=== PATIENT | female | born 1950 | race Caucasian/White ===

== ENCOUNTER → 2017-12-20 10:01 | Outpatient (CLI) | payer MEDICARE, BC, SELFPAY ==
--- NOTE | 2017-12-20 | OV.WND_ITS ---
Progress Note Details Patient Name: Cherelle Carrillo Patient Number: [id number] PatientPatientDate: 12/20/2017 Clinician: Ginger Fuentes Clinician Cosigner: Marisa Tuttle Physician / Extension Associate: William Weems SUBJECTIVE Chief Complaint This information was obtained from the patient Trauma to Left Leg. One month ago. Allergies amoxicillin, clavulanic acid, clindamycin (Severity: Moderate, Reaction: Itching Rash), Prilosec (Reaction: Itching Rash), ampicillin (Severity: Severe, Reaction: Itching red flares on skin) HPI This information was obtained from the patient 12/20/17. Seen by Dr. Weems. The patient's new to our clinic and presents with a chronic left lower leg trauma wound that occurred about one month ago. She's received two courses of antibiotics but still reports significant pain at the site. She also states she was advised to try a homeopathic topical approach that included apple cider vinegar and black pepper but feels this only caused significant pain. She does not report fevers or feeling unwell and does not have a history of diabetes or PAD. 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 Injury (Head Injury 1997) Left Lower Leg Trauma (03/11/1998) Surgical History This information was obtained from the patient Patient has a surgical history of: Pelvic reconstruction (1997) Complete Hysterectomy Complaints and Symptoms This information was obtained from the patient Patient complains of: General Notes: I have reviewed and concur with the Review of Systems and Past Family Social History documents completed by the clinician, I have reviewed and concur with the Wound Assessment document completed by the clinician Cardiovascular (Central/Peripheral): Lower extremity (leg) swelling Integumentary (Hair/Skin/Nails): Open Sore Prior Wound History: Erythema, Pain Patient denies complaints or symptoms related to: Cardiovascular (Central/Peripheral): Intermittent Claudication, Lower extremity (leg) resting pain Constitutional Symptoms (General Health): Chills, Fever Ear/Nose/Mouth/Throat: Hearing Loss / Aid Hematologic/Lymphatic: Bleeding / Clotting Disorders, Bleeding Tendency Musculoskeletal: Assistive Devices Neurological: Loss of Protective Sensation Psychiatric: Memory Loss Respiratory: Shortness of Breath General Notes: Does not get the flu shot and had pneu vacc. over 20 years ago. Refuses Shingles Vacc. Medications C-Biest 2.5mg/Progesteron 100mg oral 2 2 Capsules oral once daily C-Testosterone/Lipoderm Vaginal Fold 2 clicks 2 clicks Cream Vaginal Fold once daily liothyronine 5 mcg tablet oral 1 1 tablet oral once daily Nature-Throid 260 mg tablet oral 2 2 tablet oral twice daily ketoconazole 2 % topical cream topical cream topical twice daily gentamicin 0.1 % topical ointment topical ointment topical once daily for 7 days for infected wound OBJECTIVE Constitutional BP elevated; Afebrile; Alert and in no distress. Well developed. Alert. Clean appearing.. Height/Length: 66 in (167.64 cm), Weight: 185.5 lbs (84.32 kgs), BMI: 29.9, Temperature: 98.6 ?F (37 ?C), Pulse: 82 bpm, Respiratory Rate: 18 breaths/min, Blood Pressure : 171/83 mmHg, Pulse Oximetry: 98 %. Ears, Nose, Mouth, and Throat: No clinically significant hearing loss on informal examination. Respiratory: No respiratory distress. Even respirations and without use of accessory muscles.. Cardiovascular: Pedal pulses 2+ on affected limb. 1+ left lower extremity edema. Integumentary (Hair, Skin) Mild periwound erythema without warmth. Refer to appropriate clinician wound documentation for this visit; left lower leg wound extends to subcut with base partially covered with pink granulation, remainder necrotic eschar, fibrin and slough. Wound #1 Left, Anterior Leg is a chronic Full Thickness Trauma Wound and has received a status of Not Healed. Initial wound encounter measurements are 7.2cm length x 1.2cm width x 0.2cm depth, with an area of 8.64 sq cm and a volume of 1.728 cubic cm. No tunneling has been noted. No sinus tract has been noted. No undermining has been noted. There is a moderate amount of sero-sanguineous drainage noted which has no odor. The patient reports a wound pain of level 3/10. The wound margin is attached. Wound bed has No epithelialization, Yes eschar, Yes slough, Yes bright red, firm granulation. The periwound skin texture is normal. The periwound skin moisture is normal. The periwound skin color is normal. Local Pulse is Doppler. Neurological: Cranial nerves grossly intact with symmetric function normal by informal observation.. ASSESSMENT Active Problems ICD-10 (Encounter Diagnosis) S81.802D - Unspecified open wound, left lower leg, subsequent encounter (Encounter Diagnosis) L08.9 - Local infection of the skin and subcutaneous tissue, unspecified PROCEDURES Wound #1 Wound #1 (Trauma Wound) is located on the left, anterior leg. A skin/ subcutaneous tissue level surgical debridement with a total area debrided of 8.64 sq cm was performed by William Weems MD. Subcutaneous was removed along with devitalized tissue: exudate, necrotic/eschar, and slough. The following instrument(s) were used: curette, forceps, and scissors. Pain control was achieved using 4% Lido. A time out was conducted prior to the start of the procedure. A minimal amount of bleeding was controlled with pressure. The procedure was tolerated well with a pain level of 0 throughout and a pain level of 0 following the procedure. Post Debridement Measurements: 7.2cm length x 1.2cm width x 0.2cm depth; with an area of 8.64 sq cm and a volume of 1.728 cubic cm; Additional Information Muscle fascia or bone removed and sent to pathology?: No PLAN Wound Orders: Wound #1 Left, Anterior Leg Cleanser Cleanse Wound: - Normal Saline or distilled water. May Shower. - If you wear a Cast Boot to protect dressing. We do not want you to get your wound wet in the shower. Topical Treatments Antibiotic/Antimicrobial Ointment/Cream. - Gentamicin to wound base. Dressings Primary dressing: - Border Foam to wound Change Dressing: - Every other day. Follow-Up Appointments Return Appointment: - - One Week. Scribing Attestation I attest, as the nurse, that I scribed these orders for the physician. Laboratory: Bacteria identified in Wound by Culture Medications prescribed: gentamicin - topical 0.1 % ointment once daily for 7 days for infected wound starting 12/20/2017 I've reviewed the clinician's documentation and agree with the evaluation and plan as written. In addition the patient's wound demonstrates evidence of non-viable devitalized tissue which will continue to benefit from sharp debridement to help promote granulation and expedite healing. Also, I've cultured the wound and started treating with topical gentamicin and I 'll consider restarting and oral antibiotics pending the culture results. Electronic Signature(s) Signed By: Date: William Weems MD 12/20/2017 15:39:04 Entered By: William Weems on 12/20/2017 12:00:49
== END ==
PROVIDERS: Family Provider Naturopath; PCP Physician Assistant; Referring Provider Physician Assistant; Visit Provider Internal Medicine
DX: L08.9 Local infection of the skin and subcutaneous tissue, unspecified (principal); S81.802A Unspecified open wound, left lower leg, initial encounter; M79.605 Pain in left leg
CPT/HCPCS: 11042; 87070; 87075; 87077; 87205; 99214

== ENCOUNTER → 2017-12-27 09:57 | Outpatient (CLI) | payer MEDICARE, BC, SELFPAY ==
--- NOTE | 2017-12-27 | OV.WND_ITS ---
Progress Note Details Patient Name: Cherelle Carrillo Patient Number: [id number] PatientPatientDate: 12/27/2017 Clinician: Marisa Tuttle Clinician Cosigner: Veronica Arana Physician / Instrumentation Engineer: William Weems SUBJECTIVE Chief Complaint This information was obtained from the patient Trauma to Left Leg. One month ago. Allergies amoxicillin, clavulanic acid, clindamycin (Severity: Moderate, Reaction: Itching Rash), Prilosec (Reaction: Itching Rash), ampicillin (Severity: Severe, Reaction: Itching red flares on skin) HPI This information was obtained from the patient 12/27/17. Seen by Dr. Weems. The patient reports continued pain associated with the left lower leg trauma wound despite treating with topical gentamicin. He wound culture from the last visit grew a randy species. She does not report fevers or feeling unwell otherwise. 12/20/17. Seen by Dr. Weems. The patient's new to our clinic and presents with a chronic left lower leg trauma wound that occurred about one month ago. She's received two courses of antibiotics but still reports significant pain at the site. She also states she was advised to try a homeopathic topical approach that included apple cider vinegar and black pepper but feels this only caused significant pain. She does not report fevers or feeling unwell and does not have a history of diabetes or PAD. 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 Injury (Head Injury 1997) Left Lower Leg Trauma (03/11/1998) Complaints and Symptoms This information was obtained from the patient Patient complains of: General Notes: I have reviewed and concur with the Review of Systems and Past Family Social History documents completed by the clinician, I have reviewed and concur with the Wound Assessment document completed by the clinician Cardiovascular (Central/Peripheral): Lower extremity (leg) swelling Integumentary (Hair/Skin/Nails): Open Sore Prior Wound History: Erythema, Pain Patient denies complaints or symptoms related to: Cardiovascular (Central/Peripheral): Intermittent Claudication, Lower extremity (leg) resting pain Constitutional Symptoms (General Health): Chills, Fever Ear/Nose/Mouth/Throat: Hearing Loss / Aid Hematologic/Lymphatic: Bleeding / Clotting Disorders, Bleeding Tendency Musculoskeletal: Assistive Devices Neurological: Loss of Protective Sensation Psychiatric: Memory Loss Respiratory: Shortness of Breath OBJECTIVE Constitutional BP elevated; Afebrile; Alert and in no distress. Well developed. Alert. Clean appearing.. Height/Length: 66 in (167.64 cm), Weight: 185.6 lbs (84.36 kgs), BMI: 30, Temperature: 97.5 ?F (36.39 ?C), Pulse: 73 bpm, Respiratory Rate: 18 breaths/min, Blood Pressure: 152/84 mmHg, Pulse Oximetry: 97 %. Respiratory: No respiratory distress. Even respirations and without use of accessory muscles.. Cardiovascular: Affected extremity exhibits no peripheral edema or cyanosis, is warm, and is well perfused. Capillary refill is less than 2 seconds. Integumentary (Hair, Skin) Mild periwound erythema without warmth. Refer to appropriate clinician wound documentation for this visit; left lower leg wound extends to subcut with base partially covered with pink granulation, remainder fibrin and slough; tender to debridement. Wound #1 Left, Anterior Leg is a chronic Full Thickness Trauma Wound and has received a status of Not Healed. Subsequent wound encounter measurements are 7cm length x 1cm width x 0.2cm depth, with an area of 7 sq cm and a volume of 1.4 cubic cm. No tunneling has been noted. No sinus tract has been noted. No undermining has been noted. There is a moderate amount of sero-sanguineous drainage noted which has no odor. The patient reports a wound pain of level 6/10. The wound margin is attached. Wound bed has Yes epithelialization, No eschar, Yes slough, Yes bright red, pink, firm granulation. The periwound skin texture is normal. The periwound skin moisture is normal. The periwound skin color is normal. The temperature of the periwound skin is WNL. Periwound skin does not exhibit signs or symptoms of infection. Local Pulse is Doppler. Neurological: Cranial nerves grossly intact with symmetric function normal by informal observation.. ASSESSMENT Active Problems ICD-10 (Encounter Diagnosis) S81.802D - Unspecified open wound, left lower leg, subsequent encounter (Encounter Diagnosis) L08.9 - Local infection of the skin and subcutaneous tissue, unspecified PROCEDURES Wound #1 Wound #1 (Trauma Wound) is located on the left, anterior leg. A skin/ subcutaneous tissue level surgical debridement with a total area debrided of 7 sq cm was performed by William Weems MD. Subcutaneous was removed along with devitalized tissue: slough. The following instrument(s) were used: curette. Pain control was achieved using 4% Lido. A time out was conducted prior to the start of the procedure. A minimal amount of bleeding was controlled with pressure. The procedure was tolerated well with a pain level of 0 throughout and a pain level of 1 following the procedure. Post Debridement Measurements: 7cm length x 1cm width x 0.3cm depth; with an area of 7 sq cm and a volume of 2.1 cubic cm; PLAN Wound Orders: Wound #1 Left, Anterior Leg Cleanser Cleanse Wound: - Normal Saline or distilled water. May Shower. - If you wear a Cast Boot to protect dressing. We do not want you to get your wound wet in the shower. Topical Treatments Antibiotic/Antimicrobial Ointment/Cream. - Gentamicin to wound base. Dressings Primary dressing: - Border Foam to wound Change Dressing: - Every other day. Follow-Up Appointments Return Appointment: - - One Week. Scribing Attestation I attest, as the nurse, that I scribed these orders for the physician. Medications prescribed: doxycycline hyclate - oral 100 mg capsule twice daily for 5 days for infected wound starting 12/27/2017 I've reviewed the clinician's documentation and agree with the evaluation and plan as written. In addition the patient's wound demonstrates evidence of non-viable devitalized tissue which will continue to benefit from sharp debridement to help promote granulation and expedite healing. Also, I've repeated a wound culture due to the persistent pain and started the patient empirically on doxycycline. Electronic Signature(s) Signed By: Date: William Weems MD 12/28/2017 06:52:26 Entered By: William Weems on 12/27/2017 10:40:27
== END ==
PROVIDERS: Family Provider Naturopath; PCP Physician Assistant; Visit Provider Internal Medicine
DX: S81.802A Unspecified open wound, left lower leg, initial encounter (principal); L08.9 Local infection of the skin and subcutaneous tissue, unspecified
CPT/HCPCS: 11042; 87070; 87075; 87077; 87205

== ENCOUNTER → 2018-01-03 09:21 | Outpatient (CLI) | payer MEDICARE, BC, SELFPAY | PROVIDERS: Family Provider Naturopath; PCP Physician Assistant; Visit Provider Internal Medicine | DX: S81.802A Unspecified open wound, left lower leg, initial encounter (principal); L08.9 Local infection of the skin and subcutaneous tissue, unspecified | CPT/HCPCS: 11042; 87070; 87075; 87205 ==

== ENCOUNTER → 2018-01-10 10:54 | Outpatient (CLI) | payer MEDICARE, BC, SELFPAY ==
--- NOTE | 2018-01-10 | OV.WND_ITS ---
Progress Note Details Patient Name: Cherelle Carrillo Patient Number: [id number] PatientPatientDate: 01/10/2018 Clinician: Kati Bowman Clinician Cosigner: Marisa Tuttle Physician / Predictive Maintenance Technician: William Weems SUBJECTIVE Chief Complaint This information was obtained from the patient Trauma to Left Leg. Allergies amoxicillin, clavulanic acid, clindamycin (Severity: Moderate, Reaction: Itching Rash), Prilosec (Reaction: Itching Rash), ampicillin (Severity: Severe, Reaction: Itching red flares on skin) HPI This information was obtained from the patient 01/10/18. Seen by Dr. Weems. The patient reports improvement in the pain associated with the chronic left lower leg trauma wound since starting to treat the recurrent Randy positive wound culture with a topical antifungal last week. 01/03/18. Seen by Dr. Weems. The patient reports pain associated with the left lower trauma wound which has flared since she completed her course of doxycycline 2 days ago. She does not report increased drainage however nor fevers or feeling unwell in general. Her wound cultures have twice grown Randy but no bacteria reported. 12/27/17. Seen by Dr. Weems. The patient reports continued pain associated with the left lower leg trauma wound despite treating with topical gentamicin. He wound culture from the last visit grew a randy species. She does not report fevers or feeling unwell otherwise. 12/20/17. Seen by Dr. Weems. The patient's new to our clinic and presents with a chronic left lower leg trauma wound that occurred about one month ago. She's received two courses of antibiotics but still reports significant pain at the site. She also states she was advised to try a homeopathic topical approach that included apple cider vinegar and black pepper but feels this only caused significant pain. She does not report fevers or feeling unwell and does not have a history of diabetes or PAD. 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) Left Lower Leg Trauma (03/11/1998) Complaints and Symptoms This information was obtained from the patient Patient complains of: General Notes: I have reviewed and concur with the Review of Systems and Past Family Social History documents completed by the clinician, I have reviewed and concur with the Wound Assessment document completed by the clinician Cardiovascular (Central/Peripheral): Lower extremity (leg) swelling Integumentary (Hair/Skin/Nails): Open Sore Prior Wound History: Erythema, Pain Patient denies complaints or symptoms related to: Cardiovascular (Central/Peripheral): Intermittent Claudication, Lower extremity (leg) resting pain Constitutional Symptoms (General Health): Chills, Fever Ear/Nose/Mouth/Throat: Hearing Loss / Aid Hematologic/Lymphatic: Bleeding / Clotting Disorders, Bleeding Tendency Musculoskeletal: Assistive Devices Neurological: Loss of Protective Sensation Psychiatric: Memory Loss Respiratory: Shortness of Breath OBJECTIVE Constitutional BP elevated; Afebrile; Alert and in no distress. Well developed. Alert. Clean appearing.. Height/Length: 66 in (167.64 cm), Weight: 186.4 lbs (84.73 kgs), BMI: 30.1, Temperature: 98.7 ?F (37.06 ?C), Pulse: 77 bpm, Respiratory Rate: 16 breaths/min, Blood Pressure: 144/77 mmHg, Pulse Oximetry: 98 %. Ears, Nose, Mouth, and Throat: No clinically significant hearing loss on informal examination. Respiratory: No respiratory distress. Even respirations and without use of accessory muscles.. Cardiovascular: Affected extremity exhibits no peripheral edema or cyanosis, is warm, and is well perfused. Capillary refill is less than 2 seconds. Integumentary (Hair, Skin) Mild periwound erythema without warmth. Refer to appropriate clinician wound documentation for this visit; left lower leg wound extends to subcut with base partially covered with pink granulation, remainder fibrin and slough; smaller than on previous review. Wound #1 Left, Anterior Leg is a chronic Full Thickness Trauma Wound and has received a status of Not Healed. Subsequent wound encounter measurements are 6.8cm length x 0.7cm width x 0.1cm depth, with an area of 4.76 sq cm and a volume of 0.476 cubic cm. No tunneling has been noted. No sinus tract has been noted. No undermining has been noted. There is a moderate amount of sero-sanguineous drainage noted which has no odor. The patient reports a wound pain of level 6/10. The wound margin is attached. Wound bed has Yes epithelialization, No eschar, Yes slough, Yes bright red, pink, firm granulation. The periwound skin texture is normal. The periwound skin moisture is normal. The periwound skin color is normal. The temperature of the periwound skin is WNL. Periwound skin does not exhibit signs or symptoms of infection. Local Pulse is Doppler. General Notes: Epithelial bridge measures 0.9cm. Neurological: Cranial nerves grossly intact with symmetric function normal by informal observation.. ASSESSMENT Active Problems ICD-10 (Encounter Diagnosis) S81.802D - Unspecified open wound, left lower leg, subsequent encounter (Encounter Diagnosis) L08.9 - Local infection of the skin and subcutaneous tissue, unspecified PROCEDURES Wound #1 Wound #1 (Trauma Wound) is located on the left, anterior leg. A skin/ subcutaneous tissue level surgical debridement with a total area debrided of 4.76 sq cm was performed by William Weems MD. Subcutaneous was removed along with devitalized tissue: exudate and slough. The following instrument(s) were used: curette. Pain control was achieved using 4% Lido. A time out was conducted prior to the start of the procedure. A minimal amount of bleeding was controlled with pressure. The procedure was tolerated well with a pain level of 0 throughout and a pain level of 0 following the procedure. Post Debridement Measurements: 6.8cm length x 0.7cm width x 0.3cm depth; with an area of 4.76 sq cm and a volume of 1.428 cubic cm; Additional Information Muscle fascia or bone removed and sent to pathology?: No PLAN Wound Orders: Wound #1 Left, Anterior Leg Cleanser Cleanse Wound: - Normal Saline or distilled water. May Shower. - If you wear a Cast Boot to protect dressing. We do not want you to get your wound wet in the shower. Topical Treatments Antibiotic/Antimicrobial Ointment/Cream. - Antifungal cream- miconazole. Dressings Primary dressing: - Border Foam. Change Dressing: - Every other day. Additional Orders: Follow-Up Appointments Return Appointment: - - After you return from [place]. Other information: If you develop fever, chills, increased pain, drainage, redness or swelling please call our office. If after hours, respond to the ER. Should you experience any significant changes in your wound(s) or have any questions regarding your home care instructions please contact the wound center @ [phone]. If after hours, contact your primary care physician or go to the hospital emergency room. Scribing Attestation I attest, as the nurse, that I scribed these orders for the physician. I've reviewed the clinician's documentation and agree with the evaluation and plan as written. In addition the patient's wound demonstrates evidence of non-viable devitalized tissue which will continue to benefit from sharp debridement to help promote granulation and expedite healing. Electronic Signature(s) Signed By: Date: William Weems MD 01/11/2018 07:58:24 Entered By: William Weems on 01/10/2018 14:30:43
== END ==
PROVIDERS: Family Provider Naturopath; PCP Physician Assistant; Visit Provider Internal Medicine
DX: S81.802A Unspecified open wound, left lower leg, initial encounter (principal); L08.9 Local infection of the skin and subcutaneous tissue, unspecified
CPT/HCPCS: 11042

== ENCOUNTER → 2018-01-24 09:45 | Outpatient (CLI) | payer MEDICARE, BC, SELFPAY ==
--- NOTE | 2018-01-24 | OV.WND_ITS ---
Progress Note Details Patient Name: Cherelle Carrillo Patient Number: [id number] PatientPatientDate: 01/24/2018 Clinician: Ginger Fuentes Physician / Mobile Ui Designer: William Weems SUBJECTIVE Chief Complaint This information was obtained from the patient Trauma to Left Leg. Allergies amoxicillin, clavulanic acid, clindamycin (Severity: Moderate, Reaction: Itching Rash), Prilosec (Reaction: Itching Rash), ampicillin (Severity: Severe, Reaction: Itching red flares on skin) HPI This information was obtained from the patient 01/24/18. Seen by Dr. Weems. The patient reports improvement in the pain associated with the chronic left lower leg trauma wound since her last visit. 01/10/18. Seen by Dr. Weems. The patient reports improvement in the pain associated with the chronic left lower leg trauma wound since starting to treat the recurrent Randy positive wound culture with a topical antifungal last week. 01/03/18. Seen by Dr. Weems. The patient reports pain associated with the left lower trauma wound which has flared since she completed her course of doxycycline 2 days ago. She does not report increased drainage however nor fevers or feeling unwell in general. Her wound cultures have twice grown Randy but no bacteria reported. 12/27/17. Seen by Dr. Weems. The patient reports continued pain associated with the left lower leg trauma wound despite treating with topical gentamicin. He wound culture from the last visit grew a randy species. She does not report fevers or feeling unwell otherwise. 12/20/17. Seen by Dr. Weems. The patient's new to our clinic and presents with a chronic left lower leg trauma wound that occurred about one month ago. She's received two courses of antibiotics but still reports significant pain at the site. She also states she was advised to try a homeopathic topical approach that included apple cider vinegar and black pepper but feels this only caused significant pain. She does not report fevers or feeling unwell and does not have a history of diabetes or PAD. 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) Left Lower Leg Trauma (03/11/1998) Complaints and Symptoms This information was obtained from the patient Patient complains of: General Notes: I have reviewed and concur with the Review of Systems and Past Family Social History documents completed by the clinician, I have reviewed and concur with the Wound Assessment document completed by the clinician Cardiovascular (Central/Peripheral): Lower extremity (leg) swelling Integumentary (Hair/Skin/Nails): Open Sore Prior Wound History: Erythema, Pain Patient denies complaints or symptoms related to: Cardiovascular (Central/Peripheral): Intermittent Claudication, Lower extremity (leg) resting pain Constitutional Symptoms (General Health): Chills, Fever Ear/Nose/Mouth/Throat: Hearing Loss / Aid Hematologic/Lymphatic: Bleeding / Clotting Disorders, Bleeding Tendency Musculoskeletal: Assistive Devices Neurological: Loss of Protective Sensation Psychiatric: Memory Loss Respiratory: Shortness of Breath OBJECTIVE Constitutional Vital signs reviewed and noted. Well developed. Alert. Clean appearing.. Height/ Length: 66 in (167.64 cm), Weight: 187 lbs (85 kgs), BMI: 30.2, Temperature: 98.3 ?F (36.83 ?C ), Pulse: 80 bpm, Respiratory Rate: 18 breaths/min, Blood Pressure: 131/83 mmHg, Pulse Oximetry: 96 %. Cardiovascular: Affected extremity exhibits no peripheral edema or cyanosis, is warm, and is well perfused. Capillary refill is less than 2 seconds. Integumentary (Hair, Skin) No periwound erythema, warmth, or significant drainage. No periwound rashes appreciated or noted otherwise.. Refer to appropriate clinician wound documentation for this visit; left lower leg wound extends to subcut with base partially covered with pink granulation, remainder fibrin and slough. Wound #1 Left, Anterior Leg is a chronic Full Thickness Trauma Wound and has received a status of Not Healed. Subsequent wound encounter measurements are 3cm length x 0.3cm width x 0.1cm depth, with an area of 0.9 sq cm and a volume of 0.09 cubic cm. No tunneling has been noted. No sinus tract has been noted. No undermining has been noted. There is a moderate amount of sero-sanguineous drainage noted which has no odor. The patient reports a wound pain of level 6/10. The wound margin is attached. Wound bed has Yes epithelialization, No eschar, Yes slough, Yes pink, firm granulation. The periwound skin texture is normal. The periwound skin moisture is normal. The periwound skin color is normal. The temperature of the periwound skin is WNL. Periwound skin does not exhibit signs or symptoms of infection. Local Pulse is Doppler. Neurological: Cranial nerves grossly intact with symmetric function normal by informal observation.. ASSESSMENT Active Problems ICD-10 (Encounter Diagnosis) S81.802D - Unspecified open wound, left lower leg, subsequent encounter PROCEDURES Wound #1 Wound #1 (Trauma Wound) is located on the left, anterior leg. A skin/ subcutaneous tissue level surgical debridement with a total area debrided of 0.9 sq cm was performed by William Weems MD. Subcutaneous was removed along with devitalized tissue: exudate and slough. The following instrument(s) were used: curette. Pain control was achieved using 4% Lido. A time out was conducted prior to the start of the procedure. A minimal amount of bleeding was controlled with pressure. The procedure was tolerated well with a pain level of 0 throughout and a pain level of 0 following the procedure. Post Debridement Measurements: 3cm length x 0.3cm width x 0.1cm depth; with an area of 0.9 sq cm and a volume of 0.09 cubic cm; PLAN Wound Orders: Wound #1 Left, Anterior Leg Cleanser Cleanse Wound: - Normal Saline or distilled water. May Shower. - If you wear a Cast Boot to protect dressing. We do not want you to get your wound wet in the shower. Topical Treatments Antibiotic/Antimicrobial Ointment/Cream. - Hydrogel to wound bed. Dressings Primary dressing: - Border Foam. Change Dressing: - Every other day. Additional Orders: Follow-Up Appointments Return Appointment: - - two weeks Other information: If you develop fever, chills, increased pain, drainage, redness or swelling please call our office. If after hours, respond to the ER. Should you experience any significant changes in your wound(s) or have any questions regarding your home care instructions please contact the wound center @ [phone]. If after hours, contact your primary care physician or go to the hospital emergency room. Scribing Attestation I attest, as the nurse, that I scribed these orders for the physician. I've reviewed the clinician's documentation and agree with the evaluation and plan as written. In addition the patient's wound demonstrates evidence of non-viable devitalized tissue which will continue to benefit from sharp debridement to help promote granulation and expedite healing. Electronic Signature(s) Signed By: Date: William Weems MD 01/25/2018 09:29:15 Entered By: William Weems on 01/24/2018 13:28:36
== END ==
PROVIDERS: Family Provider Naturopath; Visit Provider Internal Medicine
DX: S81.802A Unspecified open wound, left lower leg, initial encounter (principal)
CPT/HCPCS: 11042

== ENCOUNTER → 2018-02-07 09:56 | Outpatient (CLI) | payer BC, MEDICARE, SELFPAY ==
--- NOTE | 2018-02-07 | OV.WND_ITS ---
Progress Note Details Patient Name: Cherelle Carrillo Patient Number: [id number] PatientPatientDate: 02/07/2018 Clinician: Kati Bowman Clinician Cosigner: Marisa Tuttle Physician / Health And Wellness Sales Consultant: William Weems SUBJECTIVE Chief Complaint This information was obtained from the patient Trauma to Left Leg. Allergies amoxicillin, clavulanic acid, clindamycin (Severity: Moderate, Reaction: Itching Rash), Prilosec (Reaction: Itching Rash), ampicillin (Severity: Severe, Reaction: Itching red flares on skin) HPI This information was obtained from the patient 02/07/18. Seen by Dr. Weems. The patient reports improvement in the pain associated with the chronic left lower leg trauma wound since her last visit. 01/24/18. Seen by Dr. Weems. The patient reports improvement in the pain associated with the chronic left lower leg trauma wound since her last visit. 01/10/18. Seen by Dr. Weems. The patient reports improvement in the pain associated with the chronic left lower leg trauma wound since starting to treat the recurrent Randy positive wound culture with a topical antifungal last week. 01/03/18. Seen by Dr. Weems. The patient reports pain associated with the left lower trauma wound which has flared since she completed her course of doxycycline 2 days ago. She does not report increased drainage however nor fevers or feeling unwell in general. Her wound cultures have twice grown Randy but no bacteria reported. 12/27/17. Seen by Dr. Weems. The patient reports continued pain associated with the left lower leg trauma wound despite treating with topical gentamicin. He wound culture from the last visit grew a randy species. She does not report fevers or feeling unwell otherwise. 12/20/17. Seen by Dr. Weems. The patient's new to our clinic and presents with a chronic left lower leg trauma wound that occurred about one month ago. She's received two courses of antibiotics but still reports significant pain at the site. She also states she was advised to try a homeopathic topical approach that included apple cider vinegar and black pepper but feels this only caused significant pain. She does not report fevers or feeling unwell and does not have a history of diabetes or PAD. 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 Trauma Injury (Head Injury 1997) Left Lower Leg Trauma (03/11/1998) Surgical History This information was obtained from the patient Patient has a surgical history of: Pelvic reconstruction (1997) Complete Hysterectomy Complaints and Symptoms This information was obtained from the patient Patient complains of: General Notes: I have reviewed and concur with the Review of Systems and Past Family Social History documents completed by the clinician, I have reviewed and concur with the Wound Assessment document completed by the clinician Cardiovascular (Central/Peripheral): Lower extremity (leg) swelling Integumentary (Hair/Skin/Nails): Open Sore Prior Wound History: Erythema, Pain Patient denies complaints or symptoms related to: Cardiovascular (Central/Peripheral): Intermittent Claudication, Lower extremity (leg) resting pain Constitutional Symptoms (General Health): Chills, Fever Ear/Nose/Mouth/Throat: Hearing Loss / Aid Hematologic/Lymphatic: Bleeding / Clotting Disorders, Bleeding Tendency Musculoskeletal: Assistive Devices Neurological: Loss of Protective Sensation Psychiatric: Memory Loss Respiratory: Shortness of Breath OBJECTIVE Constitutional Vital signs reviewed and noted. Well developed. Alert. Clean appearing.. Height/ Length: 66 in (167.64 cm), Weight: 189.4 lbs (86.09 kgs), BMI: 30.6, Temperature: 98.7 ?F ( 37.06 ?C), Pulse: 64 bpm, Respiratory Rate: 18 breaths/min, Blood Pressure: 141/76 mmHg. Cardiovascular: Affected extremity exhibits no peripheral edema or cyanosis, is warm, and is well perfused. Capillary refill is less than 2 seconds. Integumentary (Hair, Skin) Refer to appropriate clinician wound documentation for this visit.. Wound #1 Left, Anterior Leg is a chronic Full Thickness Trauma Wound and has received an outcome of Healed - no new wound(s). Subsequent wound encounter measurements are 0cm length x 0cm width x 0cm depth, with an area of 0 sq cm and a volume of 0 cubic cm. No tunneling has been noted. No sinus tract has been noted. No undermining has been noted. There was no drainage noted. The patient reports a wound pain of level 1/10. The wound margin is attached. Wound bed has Yes epithelialization, No eschar, Yes slough, No granulation. The periwound skin texture is normal. The periwound skin moisture is normal. The periwound skin color is normal. The temperature of the periwound skin is WNL. Periwound skin does not exhibit signs or symptoms of infection. Local Pulse is Doppler. Neurological: Cranial nerves grossly intact with symmetric function normal by informal observation.. ASSESSMENT Active Problems ICD-10 (Encounter Diagnosis) S81.802D - Unspecified open wound, left lower leg, subsequent encounter PLAN Wound Orders: Wound #1 Left, Anterior Leg Cleanser Cleanse Wound: - Normal Saline and gauze, use distilled water at home. May Shower. - Use cast protector for 7 more days. Dressings Cover and secure with: - Telfa pad secured with hypafix tape. May use bandaid home. Change Dressing: - Every other day. Please gently scrub new skin with distilled moistened gauze during each dressing change to remove any excess drainage present. Additional Orders: Follow-Up Appointments Other information: If you develop fever, chills, increased pain, drainage, redness or swelling please call our office. If after hours, respond to the ER. Should you experience any significant changes in your wound(s) or have any questions regarding your home care instructions please contact the wound center @ [phone]. If after hours, contact your primary care physician or go to the hospital emergency room. Discharge from Outpatient Services. - Wound healed, no need for follow-up at this time. Please call with any questions or concerns. Scribing Attestation I attest, as the nurse, that I scribed these orders for the physician. I've reviewed the clinician's documentation and agree with the evaluation and plan as written. In addition the patient's last remiaining complex wound is now healed. The patient is invited to return to our clinic for treatment of any future complex wounds. Post wound care and strategies to avoid recurrences were discussed. Electronic Signature(s) Signed By: Date: William Weems MD 02/08/2018 08:53:09 Entered By: William Weems on 02/08/2018 07:22:40
== END ==
PROVIDERS: Family Provider Naturopath; Visit Provider Internal Medicine
DX: Z48.817 Encounter for surgical aftercare following surgery on the skin and subcutaneous tissue (principal)
CPT/HCPCS: 99213

== ENCOUNTER 2018-04-14 14:10 | Emergency (ER) | payer MEDICARE, BC, SELFPAY ==
[2018-04-14 14:18] VITALS: BP 163/83; PULSE 85; RESP 20; TEMP 36.3; O2SAT 98; BMI 29.8
--- NOTE | 2018-04-14 14:28 | ED.LOWEXIN ---
HPI - Extremity Injury (Lower) <Sarah Montez PA-C - Last Filed: 04/14/18 20:42> General Chief Complaint: Extremity Injury, Lower Stated Complaint: BALANCE ISSUES,STRESSED Time Seen by Provider: 04/14/18 14:28 Source: patient Mode of arrival: ambulatory History of Present Illness HPI Narrative: This 67-year-old female comes to ED today due to concern about facial asymmetry. She and her state that they were at lunch today with a friend who is an RN, and noticed facial musculature asymmetry versus when she last saw patient a few weeks ago. states that this is subtle, but he can see as well now that it is pointed out. Patient herself has not noticed any facial weakness, difficulty with speech or swallowing. Her has not noted any speech changes. She has not had any numbness in her face. At the same time, she states that her gait has been ?off? for a few weeks. She describes this as ?gimpy on the L. side and states that she has pain sometimes in the left anterior hip area especially when she 1st gets up and starts to walk. Notices this less at other times. She denies any acute injury, but states that she did fall 300 ft and have a pelvic fracture on that side and surgery 20 years ago. She denies any acute weakness or paresthesia in her arms or legs. She denies any headaches or vision changes. She denies any chest pain, dyspnea, or abdominal complaints and states that she has not noticed any acute changes at all and thinks that her left leg symptoms have actually been going on for somewhat longer, maybe a few months. The only other change is that her notes she has been quieter, somewhat more blunted, but states that she has also been under more stress for the last few weeks due to recent cancer dx in her brother. Related Data Home Medications Medication Instructions Recorded Confirmed C-Biest/Progesterone See Label Instructions PO .QDAY 12/27/17 C-Testosterone/ML Lipoderm See Label Instructions TOP .QDAY 12/27/17 Ketoconazole 2? TOP BID 12/27/17 Nature Throid See Label Instructions PO .QDAY 12/27/17 Previous Rx's Medication Instructions Recorded liothyronine 5 mcg tablet 5 mcg PO DAILY #180 tab 12/04/17 atorvastatin [Lipitor] 40 mg PO DAILY #30 tab 04/14/18 Allergies Allergy/AdvReac Type Severity Reaction Status Date / Time amoxicillin [From AUGMENTIN] Allergy Unknown Verified 12/17/17 14:03 clavulanic acid Allergy Unknown Verified 12/17/17 14:03 [From AUGMENTIN] clindamycin AdvReac Intermediate ITCHING Verified 12/17/17 14:03 AND RASH ON TORSO Review of Systems <Sarah Montez PA-C - Last Filed: 04/14/18 20:42> Review of Systems All systems reviewed & are unremarkable except as noted in HPI and below Exam <Sarah Montez PA-C - Last Filed: 04/14/18 20:42> Narrative Exam Narrative: GENERAL APPEARANCE: Patient sitting comfortably, in no distress. HEENT: PERRL, EOMI, normal TMs and oropharynx NECK: Supple, no masses LUNGS: Clear to auscultation bilaterally. HEART: Rate and rhythm regular without murmur, normal S1 and S2, no S3 or S4. ABDOMEN: Soft, NT, ND, + BS x 4 quadrants NEUROLOGIC: Alert and oriented, normal speech, gait and coordination. Subtle asymmetry of the left nasal labial fold and eye corner compared to the right. Other facial musculature appears symmetric. Cranial nerves III-XII grossly intact. Negative Romberg with eyes open and closed, normal sit to stand and gait. Sensation is grossly intact. MUSCULOSKELETAL: Minimal tenderness over the left lateral hip. Full passive range of motion without tenderness, negative Julio's test. EXTREMITIES: No edema, no calf tenderness, +pedal pulses DERM: No exanthem MUSCULOSKELETAL: Full Csp AROM Initial Vital Signs Initial Vital Signs: Vital Signs Temperature 97.3 F L 04/14/18 14:18 Pulse Rate 85 04/14/18 14:18 Respiratory Rate 20 04/14/18 14:18 Blood Pressure 163/83 H 04/14/18 14:18 Pulse Oximetry 98 04/14/18 14:18 <Sandra Yanes DO - Last Filed: 04/19/18 18:28> Initial Vital Signs Initial Vital Signs: Vital Signs Temperature 97.3 F L 04/14/18 14:18 Pulse Rate 85 04/14/18 14:18 Respiratory Rate 20 04/14/18 14:18 Blood Pressure 163/83 H 04/14/18 14:18 Pulse Oximetry 98 04/14/18 14:18 <Sandra Yanes DO - Last Filed: 04/19/18 18:28> NIH Stroke Scale Level of Conciousness: Alert, keenly responsive Ask month/age: Answers both questions correctly. Open/close eyes, close hand: Performs both tasks correctly Best gaze horizontal: Normal Visual laws: No visual loss Facial palsy: Minor paralysis, flattened nasolabial fold, asymmetry on smiling Left arm drift: No drift for full 10 sec Right arm drift: No drift for full 10 sec Left leg drift: No drift for full 10 sec Right leg drift: No drift for full 10 sec Limb ataxia: Absent Sensory on face/arms/legs: Normal, no sensory loss Best language: No aphasia, normal Dysarthria: Normal Extinction or inattention: No abnormality Total NIH Stroke scale score: 1 Course <Sarah Montez PA-C - Last Filed: 04/14/18 20:42> Additional Information: Patient has been asymptomatic during her stay. It is unclear exactly when her symptoms started, but clear that there are no acute changes today per history. I spoke with Dr. Dunn, on-call hospitalist regarding whether to admit patient for MRI, echo etc (MRI not available here currently). Patient noted that her previous PCP is no longer with the practice. Dr. Dunn advised reasonable to have patient follow-up as an outpatient in the short term, and start on ASA and atorvastatin 40 [address] in the interim[address] Dr. Dunn the agreed to see the patient when she is back in the clinic on Sunday. Patient is happy with this plan and she and her agreed to get to ED right away if any acute changes in the interim. She also noted that she monitors her BP at home and has had some readings in the 140s systolic. She sometimes takes a naturopathic supplement to help with this but not regularly. Advised her to remain off of this and check some home blood pressure readings over the next couple of days to review with Dr. Dunn Orders Ordered: Discontinued Medications Aspirin (Aspirin) 325 mg PO NOW ONE Stop: 04/14/18 16:14 Last Admin: 04/14/18 16:34 Dose: 325 mg Vital Signs - 8 hr 04/14/18 14:18 04/14/18 16:41 Temperature 97.3 F L Pulse Rate 85 66 Respiratory Rate 20 16 Blood Pressure 163/83 H Blood Pressure [Left Arm] 155/71 H Pulse Oximetry 98 98 <Sandra Yanes DO - Last Filed: 04/19/18 18:28> Orders Ordered: Discontinued Medications Aspirin (Aspirin) 325 mg PO NOW ONE Stop: 04/14/18 16:14 Last Admin: 04/14/18 16:34 Dose: 325 mg Vital Signs - 8 hr 04/14/18 14:18 04/14/18 16:41 Temperature 97.3 F L Pulse Rate 85 66 Respiratory Rate 20 16 Blood Pressure 163/83 H Blood Pressure [Left Arm] 155/71 H Pulse Oximetry 98 98 MDM - Extremity Injury (Lower) <Sarah Montez PA-C - Last Filed: 04/14/18 20:42> Lab Data Attestation: I reviewed the patient's lab results. Result diagrams: 04/14/18 15:20 04/14/18 15:20 Lab Results 04/14/18 04/14/18 04/14/18 Range/Units 15:20 15:20 15:20 WBC 5.9 (4.5-11.0) X10^3/uL RBC 4.69 (4.0-5.2) X10^6/uL Hgb 14.4 (12.0-16.0) g/dL Hct 42.7 (36-46) % MCV 90.9 (80-100) fL MCH 30.6 (26-34) PG MCHC 33.7 (30-36) % RDW 13.8 (11.6-14.8) % Plt Count 317 (150-400) X10^3/uL Neut % (Auto) 55.7 (50-75) % Lymph % (Auto) 36.9 (25-40) % [place] % (Auto) 5.5 (3-14) % Eos % (Auto) 1.3 L (2-4) % Baso % (Auto) 0.6 (0-2) % Neut # (Auto) 3300 (6403-3311) /uL Sodium 143 (137-145) mmol/L Potassium 4.4 (3.4-5.1) mmol/L Chloride 105 (98-107) mmol/L Carbon Dioxide 27 (22-32) mmol/L BUN 17 (7-17) mg/dL Creatinine 0.70 (0.52-1.04) mg/dL Estimated GFR > 60.0 (>60) mL/min BUN/Creatinine Ratio 24.3 H (6-22) Glucose 103 (80-110) mg/dL Calcium 8.8 (8.4-10.2) mg/dL Total Bilirubin 0.3 (0.2-1.3) mg/dL AST 24 (14-36) IU/L ALT 37 (9-52) IU/L Alkaline Phosphatase 40 (38-126) U/L Total Protein 6.9 (6.3-8.2) g/dL Albumin 4.1 (3.5-5.0) g/dL Globulin 2.8 (1.7-4.1) g/dL Albumin/Globulin Ratio 1.5 (1.0-2.8) Triglycerides (35-150) mg/dL Cholesterol (140-199) mg/dL LDL Cholesterol, Calc (<100) mg/dL HDL Cholesterol (40-60) mg/dL TSH 0.47 (0.47-4.68) uIU/mL 04/14/18 Range/Units 15:20 WBC (4.5-11.0) X10^3/uL RBC (4.0-5.2) X10^6/uL Hgb (12.0-16.0) g/dL Hct (36-46) % MCV (80-100) fL MCH (26-34) PG MCHC (30-36) % RDW (11.6-14.8) % Plt Count (150-400) X10^3/uL Neut % (Auto) (50-75) % Lymph % (Auto) (25-40) % [place] % (Auto) (3-14) % Eos % (Auto) (2-4) % Baso % (Auto) (0-2) % Neut # (Auto) (6954-9452) /uL Sodium (137-145) mmol/L Potassium (3.4-5.1) mmol/L Chloride (98-107) mmol/L Carbon Dioxide (22-32) mmol/L BUN (7-17) mg/dL Creatinine (0.52-1.04) mg/dL Estimated GFR (>60) mL/min BUN/Creatinine Ratio (6-22) Glucose (80-110) mg/dL Calcium (8.4-10.2) mg/dL Total Bilirubin (0.2-1.3) mg/dL AST (14-36) IU/L ALT (9-52) IU/L Alkaline Phosphatase (38-126) U/L Total Protein (6.3-8.2) g/dL Albumin (3.5-5.0) g/dL Globulin (1.7-4.1) g/dL Albumin/Globulin Ratio (1.0-2.8) Triglycerides 284 H (35-150) mg/dL Cholesterol 191 (140-199) mg/dL LDL Cholesterol, Calc 100 (<100) mg/dL HDL Cholesterol 34 L (40-60) mg/dL TSH (0.47-4.68) uIU/mL Imaging Data CT scan - head: Radiologist's impression: [address] [address] [address] Scan Report Signed Patient: Cherelle Carrillo BMR#: [id number] : 8Acct:[id number] Age/Sex: 67 / FDate of Service: 04/14/18 Loc: ED Accession Number: [id number] Procedure: CT head/brain wo con Ordering Provider: Sarah Montez P.A-C PROCEDURE: CT HEAD/BRAIN WO CON INDICATIONS: facial asymmetry TECHNIQUE: Noncontrast 4.5 mm thick angled axial sections acquired from the foramen magnum to the vertex, with coronal and sagittal reformats. For radiation dose reduction, the following was used: automated exposure control, adjustment of mA and/or kV according to patient size. COMPARISON: None. FINDINGS: Image quality: Excellent. CSF spaces: Basal cisterns are patent. No extra-axial fluid collections. The ventricles are symmetric in size and shape. Brain: Ill-defined area of hypodensity involving right basal ganglia suspicious for acute infarction in this area. it No intracranial bleeds or masses. There is cerebral volume loss for age, with resultant ventricular and sulcal prominence. There are periventricular and deep white matter chronic small vessel ischemic changes. There is intracranial internal carotid artery atherosclerosis. Skull and face: Calvarium and visualized facial bones appear intact, without suspicious lesions. Sinuses: Visualized sinuses and mastoids are clear. IMPRESSION: Finding may represent acute infarction involving right basal ganglia. No intracranial bleed or midline shift. Age-appropriate atrophy and mild periventricular white matter microangiopathic changes. Dictated by: Marshal Manzanares M.D. on 04/14/2018 15:18 Approved by: Marshal Manzanares M.D. on 04/14/2018 at 15:20 hip: Radiologist's impression: [address] [address] XRay Report Signed Patient: Cherelle Carrillo BMR#: [id number] : 8Acct:[id number] Age/Sex: 67 / FDate of Service: 04/14/18 Loc: ED Accession Number: [id number] Procedure: XR hip w pel if done LT 2V Ordering Provider: Sarah Montez P.A-C PROCEDURE: XR HIP W PEL IF DONE LT 2V INDICATIONS: weakness, pain TECHNIQUE: AP pelvis with lateral view(s) of the left hip(s). COMPARISON: None. FINDINGS: Bones: There is previous fixation of left hemipelvis. No gross hardware loosening or failure is seen. No acute pelvic or hip fracture. Osteoarthritic changes in bilateral hip joints and symphysis pubis are seen. No evidence of avascular necrosis. Pelvic ring appears intact. No suspicious bony lesions. Soft tissues: The visualized bowel gas pattern is normal. No suspicious soft tissue calcifications. IMPRESSION: Prior fixation of left hemipelvis. No gross hardware complication. No gross acute pelvic or hip fracture. Left hip osteoarthritis. No evidence of avascular necrosis. Dictated by: Marshal Manzanares M.D. on 04/14/2018 at 15:24 Approved by: Marshal Manzanares M.D. on 04/14/2018 at 15:25 ECG Data Attestation: I personally reviewed and interpreted this ECG as follows: (NSR, nl axis) <Sandra Yanes, DO - Last Filed: 04/19/18 18:28> Lab Data Attestation: I reviewed the patient's lab results. Lab Results 04/14/18 04/14/18 04/14/18 Range/Units 15:20 15:20 15:20 WBC 5.9 (4.5-11.0) X10^3/uL RBC 4.69 (4.0-5.2) X10^6/uL Hgb 14.4 (12.0-16.0) g/dL Hct 42.7 (36-46) % MCV 90.9 (80-100) fL MCH 30.6 (26-34) PG MCHC 33.7 (30-36) % RDW 13.8 (11.6-14.8) % Plt Count 317 (150-400) X10^3/uL Neut % (Auto) 55.7 (50-75) % Lymph % (Auto) 36.9 (25-40) % [place] % (Auto) 5.5 (3-14) % Eos % (Auto) 1.3 L (2-4) % Baso % (Auto) 0.6 (0-2) % Neut # (Auto) 3300 (7305-3393) /uL Sodium 143 (137-145) mmol/L Potassium 4.4 (3.4-5.1) mmol/L Chloride 105 (98-107) mmol/L Carbon Dioxide 27 (22-32) mmol/L BUN 17 (7-17) mg/dL Creatinine 0.70 (0.52-1.04) mg/dL Estimated GFR > 60.0 (>60) mL/min BUN/Creatinine Ratio 24.3 H (6-22) Glucose 103 (80-110) mg/dL Calcium 8.8 (8.4-10.2) mg/dL Total Bilirubin 0.3 (0.2-1.3) mg/dL AST 24 (14-36) IU/L ALT 37 (9-52) IU/L Alkaline Phosphatase 40 (38-126) U/L Total Protein 6.9 (6.3-8.2) g/dL Albumin 4.1 (3.5-5.0) g/dL Globulin 2.8 (1.7-4.1) g/dL Albumin/Globulin Ratio 1.5 (1.0-2.8) Triglycerides (35-150) mg/dL Cholesterol (140-199) mg/dL LDL Cholesterol, Calc (<100) mg/dL HDL Cholesterol (40-60) mg/dL TSH 0.47 (0.47-4.68) uIU/mL 04/14/18 Range/Units 15:20 WBC (4.5-11.0) X10^3/uL RBC (4.0-5.2) X10^6/uL Hgb (12.0-16.0) g/dL Hct (36-46) % MCV (80-100) fL MCH (26-34) PG MCHC (30-36) % RDW (11.6-14.8) % Plt Count (150-400) X10^3/uL Neut % (Auto) (50-75) % Lymph % (Auto) (25-40) % [place] % (Auto) (3-14) % Eos % (Auto) (2-4) % Baso % (Auto) (0-2) % Neut # (Auto) (7712-7101) /uL Sodium (137-145) mmol/L Potassium (3.4-5.1) mmol/L Chloride (98-107) mmol/L Carbon Dioxide (22-32) mmol/L BUN (7-17) mg/dL Creatinine (0.52-1.04) mg/dL Estimated GFR (>60) mL/min BUN/Creatinine Ratio (6-22) Glucose (80-110) mg/dL Calcium (8.4-10.2) mg/dL Total Bilirubin (0.2-1.3) mg/dL AST (14-36) IU/L ALT (9-52) IU/L Alkaline Phosphatase (38-126) U/L Total Protein (6.3-8.2) g/dL Albumin (3.5-5.0) g/dL Globulin (1.7-4.1) g/dL Albumin/Globulin Ratio (1.0-2.8) Triglycerides 284 H (35-150) mg/dL Cholesterol 191 (140-199) mg/dL LDL Cholesterol, Calc 100 (<100) mg/dL HDL Cholesterol 34 L (40-60) mg/dL TSH (0.47-4.68) uIU/mL ECG Data Attestation: I personally reviewed and interpreted this ECG as follows: Prior ECG tracings: not available for review Interpretation: Normal sinus rhythm rate 66 heart rate 160, QTC [address] changes Q-wave noted in lead 3 no priors to compare no T-wave inversions Discharge Plan Departure Patient Disposition: Home Clinical Impression: CVA (cerebral vascular accident) Discharge Date/Time: 04/14/18 16:20 Interventions: ED Discharge Assessment Last Done: 04/14/18 16:26 Instructions: DI for Stroke-Ischemic Activity Restrictions/Additional Instructions: Please call 911 as we discussed if you have any acute changes such as localized weakness, numbness, or difficulty with speech. Otherwise, please start the cholesterol medicine, atorvastatin, this evening, to help to reduce your future risk of stroke and other cardiovascular events (i.e. heart attack). Take a regular dose aspirin 325mg once daily to help with this as well. Stay off of your natural medicine that you take sometimes for blood pressure and check a seated, relaxed blood pressure a couple of times daily and jot this down to review at your visit with Dr. Dunn. Call [facility] (Dr. Dunn's office) first thing tomorrow morning. The let them know that we spoke with her when you were in the emergency room and that she wants to see you in the clinic on Sunday for follow-up. Prescriptions: New atorvastatin [Lipitor] 40 mg tablet 40 mg PO DAILY Qty: 30 RF: 0 No Action liothyronine [Cytomel] 5 mcg tablet 5 mcg PO DAILY Qty: 180 RF: 3 Ketoconazole 2? cream TOP BID RF: 0 Nature Throid See Patient Comments PO .QDAY RF: 0 C-Biest/Progesterone capsule See Patient Comments PO .QDAY RF: 0 C-Testosterone/ML Lipoderm cream See Patient Comments TOP .QDAY RF: 0 Referrals: Sanna Dunn MD [Physician] - <Sandra Yanes DO - Last Filed: 04/19/18 18:28> [facility] Att[facility]: I was immediately available in the department for consultation. Documentation has been reviewed. I agree with assessment and plan.
--- NOTE | 2018-04-14 14:55 | DI.RAD.S_ITS ---
PROCEDURE: XR HIP W PEL IF DONE LT 2V INDICATIONS: weakness, pain TECHNIQUE: AP pelvis with lateral view(s) of the left hip(s). COMPARISON: None. FINDINGS: Bones: There is previous fixation of left hemipelvis. No gross hardware loosening or failure is seen. No acute pelvic or hip fracture. Osteoarthritic changes in bilateral hip joints and symphysis pubis are seen. No evidence of avascular necrosis. Pelvic ring appears intact. No suspicious bony lesions. Soft tissues: The visualized bowel gas pattern is normal. No suspicious soft tissue calcifications. IMPRESSION: Prior fixation of left hemipelvis. No gross hardware complication. No gross acute pelvic or hip fracture. Left hip osteoarthritis. No evidence of avascular necrosis. Dictated by: Marshal Manzanares M.D. on 04/14/2018 at 15:24 Approved by: Marshal Manzanares M.D. on 04/14/2018 at 15:25
--- NOTE | 2018-04-14 14:56 | DI.CT.S_ITS ---
PROCEDURE: CT HEAD/BRAIN WO CON INDICATIONS: facial asymmetry TECHNIQUE: Noncontrast 4.5 mm thick angled axial sections acquired from the foramen magnum to the vertex, with coronal and sagittal reformats. For radiation dose reduction, the following was used: automated exposure control, adjustment of mA and/or kV according to patient size. COMPARISON: None. FINDINGS: Image quality: Excellent. CSF spaces: Basal cisterns are patent. No extra-axial fluid collections. The ventricles are symmetric in size and shape. Brain: Ill-defined area of hypodensity involving right basal ganglia suspicious for acute infarction in this area. it No intracranial bleeds or masses. There is cerebral volume loss for age, with resultant ventricular and sulcal prominence. There are periventricular and deep white matter chronic small vessel ischemic changes. There is intracranial internal carotid artery atherosclerosis. Skull and face: Calvarium and visualized facial bones appear intact, without suspicious lesions. Sinuses: Visualized sinuses and mastoids are clear. IMPRESSION: Finding may represent acute infarction involving right basal ganglia. No intracranial bleed or midline shift. Age-appropriate atrophy and mild periventricular white matter microangiopathic changes. Dictated by: Marshal Manzanares M.D. on 04/14/2018 15:18 Approved by: Marshal Manzanares M.D. on 04/14/2018 at 15:20
--- NOTE | 2018-04-14 15:05 | ED_ITS ---
HPI - Extremity Injury (Lower) <Sarah Montez PA-C - Last Filed: 04/14/18 20:42> General Chief Complaint: Extremity Injury, Lower Stated Complaint: BALANCE ISSUES,STRESSED Time Seen by Provider: 04/14/18 14:28 Source: patient Mode of arrival: ambulatory History of Present Illness HPI Narrative: This 67-year-old female comes to ED today due to concern about facial asymmetry. She and her state that they were at lunch today with a friend who is an RN, and noticed facial musculature asymmetry versus when she last saw patient a few weeks ago. states that this is subtle, but he can see as well now that it is pointed out. Patient herself has not noticed any facial weakness, difficulty with speech or swallowing. Her has not noted any speech changes. She has not had any numbness in her face. At the same time, she states that her gait has been ?off? for a few weeks. She describes this as ?gimpy on the L. side and states that she has pain sometimes in the left anterior hip area especially when she 1st gets up and starts to walk. Notices this less at other times. She denies any acute injury, but states that she did fall 300 ft and have a pelvic fracture on that side and surgery 20 years ago. She denies any acute weakness or paresthesia in her arms or legs. She denies any headaches or vision changes. She denies any chest pain , dyspnea, or abdominal complaints and states that she has not noticed any acute changes at all and thinks that her left leg symptoms have actually been going on for somewhat longer, maybe a few months. The only other change is that her notes she has been quieter, somewhat more blunted, but states that she has also been under more stress for the last few weeks due to recent cancer dx in her brother. Related Data Home Medications Medication Instructions Recorded Confirmed C-Biest/Progesterone See Label Instructions PO .QDAY 12/27/17 C-Testosterone/ML Lipoderm See Label Instructions TOP .QDAY 12/27/17 Ketoconazole 2? TOP BID 12/27/17 Nature Throid See Label Instructions PO .QDAY 12/27/17 Previous Rx's Medication Instructions Recorded liothyronine 5 mcg tablet 5 mcg PO DAILY #180 tab 12/04/17 atorvastatin [Lipitor] 40 mg PO DAILY #30 tab 04/14/18 Allergies Allergy/AdvReac Type Severity Reaction Status Date / Time amoxicillin [From AUGMENTIN] Allergy Unknown Verified 12/17/17 14:03 clavulanic acid Allergy Unknown Verified 12/17/17 14:03 [From AUGMENTIN] clindamycin AdvReac Intermediate ITCHING Verified 12/17/17 14:03 AND RASH ON TORSO Review of Systems <Sarah Montez PA-C - Last Filed: 04/14/18 20:42> Review of Systems All systems reviewed & are unremarkable except as noted in HPI and below Exam <Sarah Montez PA-C - Last Filed: 04/14/18 20:42> Narrative Exam Narrative: GENERAL APPEARANCE: Patient sitting comfortably, in no distress. HEENT: PERRL, EOMI, normal TMs and oropharynx NECK: Supple, no masses LUNGS: Clear to auscultation bilaterally. HEART: Rate and rhythm regular without murmur, normal S1 and S2, no S3 or S4. ABDOMEN: Soft, NT, ND, + BS x 4 quadrants NEUROLOGIC: Alert and oriented, normal speech, gait and coordination. Subtle asymmetry of the left nasal labial fold and eye corner compared to the right. Other facial musculature appears symmetric. Cranial nerves III-XII grossly intact. Negative Romberg with eyes open and closed, normal sit to stand and gait. Sensation is grossly intact. MUSCULOSKELETAL: Minimal tenderness over the left lateral hip. Full passive range of motion without tenderness, negative Julio's test. EXTREMITIES: No edema, no calf tenderness, +pedal pulses DERM: No exanthem MUSCULOSKELETAL: Full Csp AROM Initial Vital Signs Initial Vital Signs: Vital Signs Temperature 97.3 F L 04/14/18 14:18 Pulse Rate 85 04/14/18 14:18 Respiratory Rate 20 04/14/18 14:18 Blood Pressure 163/83 H 04/14/18 14:18 Pulse Oximetry 98 04/14/18 14:18 <Sandra Yanes DO - Last Filed: 04/19/18 18:28> Initial Vital Signs Initial Vital Signs: Vital Signs Temperature 97.3 F L 04/14/18 14:18 Pulse Rate 85 04/14/18 14:18 Respiratory Rate 20 04/14/18 14:18 Blood Pressure 163/83 H 04/14/18 14:18 Pulse Oximetry 98 04/14/18 14:18 <Sandra Yanes DO - Last Filed: 04/19/18 18:28> NIH Stroke Scale Level of Conciousness: Alert, keenly responsive Ask month/age: Answers both questions correctly. Open/close eyes, close hand: Performs both tasks correctly Best gaze horizontal: Normal Visual laws: No visual loss Facial palsy: Minor paralysis, flattened nasolabial fold, asymmetry on smiling Left arm drift: No drift for full 10 sec Right arm drift: No drift for full 10 sec Left leg drift: No drift for full 10 sec Right leg drift: No drift for full 10 sec Limb ataxia: Absent Sensory on face/arms/legs: Normal, no sensory loss Best language: No aphasia, normal Dysarthria: Normal Extinction or inattention: No abnormality Total NIH Stroke scale score: 1 Course <Sarah Montez PA-C - Last Filed: 04/14/18 20:42> Additional Information: Patient has been asymptomatic during her stay. It is unclear exactly when her symptoms started, but clear that there are no acute changes today per history. I spoke with Dr. Dunn, on-call hospitalist regarding whether to admit patient for MRI, echo etc (MRI not available here currently). Patient noted that her previous PCP is no longer with the practice. Dr. Dunn advised reasonable to have patient follow-up as an outpatient in the short term, and start on ASA and atorvastatin 40 mg in the interim. Dr. Dunn the agreed to see the patient when she is back in the clinic on Sunday. Patient is happy with this plan and she and her agreed to get to ED right away if any acute changes in the interim. She also noted that she monitors her BP at home and has had some readings in the 140s systolic. She sometimes takes a naturopathic supplement to help with this but not regularly. Advised her to remain off of this and check some home blood pressure readings over the next couple of days to review with Dr. Dunn Orders Ordered: Discontinued Medications Aspirin (Aspirin) 325 mg PO NOW ONE Stop: 04/14/18 16:14 Last Admin: 04/14/18 16:34 Dose: 325 mg Vital Signs - 8 hr 04/14/18 14:18 04/14/18 16:41 Temperature 97.3 F L Pulse Rate 85 66 Respiratory Rate 20 16 Blood Pressure 163/83 H Blood Pressure [Left Arm] 155/71 H Pulse Oximetry 98 98 <Sandra Yanes DO - Last Filed: 04/19/18 18:28> Orders Ordered: Discontinued Medications Aspirin (Aspirin) 325 mg PO NOW ONE Stop: 04/14/18 16:14 Last Admin: 04/14/18 16:34 Dose: 325 mg Vital Signs - 8 hr 04/14/18 14:18 04/14/18 16:41 Temperature 97.3 F L Pulse Rate 85 66 Respiratory Rate 20 16 Blood Pressure 163/83 H Blood Pressure [Left Arm] 155/71 H Pulse Oximetry 98 98 MDM - Extremity Injury (Lower) <Sarah Montez PA-C - Last Filed: 04/14/18 20:42> Lab Data Attestation: I reviewed the patient's lab results. Result diagrams: 04/14/18 15:20 04/14/18 15:20 Lab Results 04/14/18 04/14/18 04/14/18 Range/Units 15:20 15:20 15:20 WBC 5.9 (4.5-11.0) X10^3/uL RBC 4.69 (4.0-5.2) X10^6/uL Hgb 14.4 (12.0-16.0) g/dL Hct 42.7 (36-46) % MCV 90.9 (80-100) fL MCH 30.6 (26-34) PG MCHC 33.7 (30-36) % RDW 13.8 (11.6-14.8) % Plt Count 317 (150-400) X10^3/uL Neut % (Auto) 55.7 (50-75) % Lymph % (Auto) 36.9 (25-40) % Ashe % (Auto) 5.5 (3-14) % Eos % (Auto) 1.3 L (2-4) % Baso % (Auto) 0.6 (0-2) % Neut # (Auto) 3300 (1615-1737) /uL Sodium 143 (137-145) mmol/L Potassium 4.4 (3.4-5.1) mmol/L Chloride 105 (98-107) mmol/L Carbon Dioxide 27 (22-32) mmol/L BUN 17 (7-17) mg/dL Creatinine 0.70 (0.52-1.04) mg/dL Estimated GFR > 60.0 (>60) mL/min BUN/Creatinine Ratio 24.3 H (6-22) Glucose 103 (80-110) mg/dL Calcium 8.8 (8.4-10.2) mg/dL Total Bilirubin 0.3 (0.2-1.3) mg/dL AST 24 (14-36) IU/L ALT 37 (9-52) IU/L Alkaline Phosphatase 40 (38-126) U/L Total Protein 6.9 (6.3-8.2) g/dL Albumin 4.1 (3.5-5.0) g/dL Globulin 2.8 (1.7-4.1) g/dL Albumin/Globulin Ratio 1.5 (1.0-2.8) Triglycerides (35-150) mg/dL Cholesterol (140-199) mg/dL LDL Cholesterol, Calc (<100) mg/dL HDL Cholesterol (40-60) mg/dL TSH 0.47 (0.47-4.68) uIU/mL 04/14/18 Range/Units 15:20 WBC (4.5-11.0) X10^3/uL RBC (4.0-5.2) X10^6/uL Hgb (12.0-16.0) g/dL Hct (36-46) % MCV (80-100) fL MCH (26-34) PG MCHC (30-36) % RDW (11.6-14.8) % Plt Count (150-400) X10^3/uL Neut % (Auto) (50-75) % Lymph % (Auto) (25-40) % Ashe % (Auto) (3-14) % Eos % (Auto) (2-4) % Baso % (Auto) (0-2) % Neut # (Auto) (4333-6458) /uL Sodium (137-145) mmol/L Potassium (3.4-5.1) mmol/L Chloride (98-107) mmol/L Carbon Dioxide (22-32) mmol/L BUN (7-17) mg/dL Creatinine (0.52-1.04) mg/dL Estimated GFR (>60) mL/min BUN/Creatinine Ratio (6-22) Glucose (80-110) mg/dL Calcium (8.4-10.2) mg/dL Total Bilirubin (0.2-1.3) mg/dL AST (14-36) IU/L ALT (9-52) IU/L Alkaline Phosphatase (38-126) U/L Total Protein (6.3-8.2) g/dL Albumin (3.5-5.0) g/dL Globulin (1.7-4.1) g/dL Albumin/Globulin Ratio (1.0-2.8) Triglycerides 284 H (35-150) mg/dL Cholesterol 191 (140-199) mg/dL LDL Cholesterol, Calc 100 (<100) mg/dL HDL Cholesterol 34 L (40-60) mg/dL TSH (0.47-4.68) uIU/mL Imaging Data CT scan - head: Radiologist's impression: [address] [address] [address] Scan Report Signed Patient: Cherelle Carrillo BMR#: [id number] : 8Acct:[id number] Age/Sex: 67 / FDate of Service: 04/14/18 Loc: ED Accession Number: [id number] Procedure: CT head/brain wo con Ordering Provider: Sarah Montez P.A-C PROCEDURE: CT HEAD/BRAIN WO CON INDICATIONS: facial asymmetry TECHNIQUE: Noncontrast 4.5 mm thick angled axial sections acquired from the foramen magnum to the vertex, with coronal and sagittal reformats. For radiation dose reduction, the following was used: automated exposure control, adjustment of mA and/or kV according to patient size. COMPARISON: None. FINDINGS: Image quality: Excellent. CSF spaces: Basal cisterns are patent. No extra-axial fluid collections. The ventricles are symmetric in size and shape. Brain: Ill-defined area of hypodensity involving right basal ganglia suspicious for acute infarction in this area. it No intracranial bleeds or masses. There is cerebral volume loss for age, with resultant ventricular and sulcal prominence. There are periventricular and deep white matter chronic small vessel ischemic changes. There is intracranial internal carotid artery atherosclerosis. Skull and face: Calvarium and visualized facial bones appear intact, without suspicious lesions. Sinuses: Visualized sinuses and mastoids are clear. IMPRESSION: Finding may represent acute infarction involving right basal ganglia. No intracranial bleed or midline shift. Age-appropriate atrophy and mild periventricular white matter microangiopathic changes. Dictated by: Marshal Manzanares M.D. on 04/14/2018 15:18 Approved by: Marshal Manzanares M.D. on 04/14/2018 at 15:20 hip: Radiologist's impression: [address] [address] XRay Report Signed Patient: Cherelle Carrillo BMR#: [id number] : 8Acct:[id number] Age/Sex: 67 / FDate of Service: 04/14/18 Loc: ED Accession Number: [id number] Procedure: XR hip w pel if done LT 2V Ordering Provider: Sarah Montez P.A-C PROCEDURE: XR HIP W PEL IF DONE LT 2V INDICATIONS: weakness, pain TECHNIQUE: AP pelvis with lateral view(s) of the left hip(s). COMPARISON: None. FINDINGS: Bones: There is previous fixation of left hemipelvis. No gross hardware loosening or failure is seen. No acute pelvic or hip fracture. Osteoarthritic changes in bilateral hip joints and symphysis pubis are seen. No evidence of avascular necrosis. Pelvic ring appears intact. No suspicious bony lesions. Soft tissues: The visualized bowel gas pattern is normal. No suspicious soft tissue calcifications. IMPRESSION: Prior fixation of left hemipelvis. No gross hardware complication. No gross acute pelvic or hip fracture. Left hip osteoarthritis. No evidence of avascular necrosis. Dictated by: Marshal Manzanares M.D. on 04/14/2018 at 15:24 Approved by: Marshal Manzanares M.D. on 04/14/2018 at 15:25 ECG Data Attestation: I personally reviewed and interpreted this ECG as follows: (NSR, nl axis) <Sandra Yanes, DO - Last Filed: 04/19/18 18:28> Lab Data Attestation: I reviewed the patient's lab results. Lab Results 04/14/18 04/14/18 04/14/18 Range/Units 15:20 15:20 15:20 WBC 5.9 (4.5-11.0) X10^3/uL RBC 4.69 (4.0-5.2) X10^6/uL Hgb 14.4 (12.0-16.0) g/dL Hct 42.7 (36-46) % MCV 90.9 (80-100) fL MCH 30.6 (26-34) PG MCHC 33.7 (30-36) % RDW 13.8 (11.6-14.8) % Plt Count 317 (150-400) X10^3/uL Neut % (Auto) 55.7 (50-75) % Lymph % (Auto) 36.9 (25-40) % Ashe % (Auto) 5.5 (3-14) % Eos % (Auto) 1.3 L (2-4) % Baso % (Auto) 0.6 (0-2) % Neut # (Auto) 3300 (2297-0814) /uL Sodium 143 (137-145) mmol/L Potassium 4.4 (3.4-5.1) mmol/L Chloride 105 (98-107) mmol/L Carbon Dioxide 27 (22-32) mmol/L BUN 17 (7-17) mg/dL Creatinine 0.70 (0.52-1.04) mg/dL Estimated GFR > 60.0 (>60) mL/min BUN/Creatinine Ratio 24.3 H (6-22) Glucose 103 (80-110) mg/dL Calcium 8.8 (8.4-10.2) mg/dL Total Bilirubin 0.3 (0.2-1.3) mg/dL AST 24 (14-36) IU/L ALT 37 (9-52) IU/L Alkaline Phosphatase 40 (38-126) U/L Total Protein 6.9 (6.3-8.2) g/dL Albumin 4.1 (3.5-5.0) g/dL Globulin 2.8 (1.7-4.1) g/dL Albumin/Globulin Ratio 1.5 (1.0-2.8) Triglycerides (35-150) mg/dL Cholesterol (140-199) mg/dL LDL Cholesterol, Calc (<100) mg/dL HDL Cholesterol (40-60) mg/dL TSH 0.47 (0.47-4.68) uIU/mL 04/14/18 Range/Units 15:20 WBC (4.5-11.0) X10^3/uL RBC (4.0-5.2) X10^6/uL Hgb (12.0-16.0) g/dL Hct (36-46) % MCV (80-100) fL MCH (26-34) PG MCHC (30-36) % RDW (11.6-14.8) % Plt Count (150-400) X10^3/uL Neut % (Auto) (50-75) % Lymph % (Auto) (25-40) % Ashe % (Auto) (3-14) % Eos % (Auto) (2-4) % Baso % (Auto) (0-2) % Neut # (Auto) (9090-4340) /uL Sodium (137-145) mmol/L Potassium (3.4-5.1) mmol/L Chloride (98-107) mmol/L Carbon Dioxide (22-32) mmol/L BUN (7-17) mg/dL Creatinine (0.52-1.04) mg/dL Estimated GFR (>60) mL/min BUN/Creatinine Ratio (6-22) Glucose (80-110) mg/dL Calcium (8.4-10.2) mg/dL Total Bilirubin (0.2-1.3) mg/dL AST (14-36) IU/L ALT (9-52) IU/L Alkaline Phosphatase (38-126) U/L Total Protein (6.3-8.2) g/dL Albumin (3.5-5.0) g/dL Globulin (1.7-4.1) g/dL Albumin/Globulin Ratio (1.0-2.8) Triglycerides 284 H (35-150) mg/dL Cholesterol 191 (140-199) mg/dL LDL Cholesterol, Calc 100 (<100) mg/dL HDL Cholesterol 34 L (40-60) mg/dL TSH (0.47-4.68) uIU/mL ECG Data Attestation: I personally reviewed and interpreted this ECG as follows: Prior ECG tracings: not available for review Interpretation: Normal sinus rhythm rate 66 heart rate 160, QTC [address] changes Q-wave noted in lead 3 no priors to compare no T-wave inversions Discharge Plan Departure Patient Disposition: Home Clinical Impression: CVA (cerebral vascular accident) Discharge Date/Time: 04/14/18 16:20 Interventions: ED Discharge Assessment Last Done: 04/14/18 16:26 Instructions: DI for Stroke-Ischemic Activity Restrictions/Additional Instructions: Please call 911 as we discussed if you have any acute changes such as localized weakness, numbness, or difficulty with speech. Otherwise, please start the cholesterol medicine, atorvastatin, this evening, to help to reduce your future risk of stroke and other cardiovascular events (i.e. heart attack). Take a regular dose aspirin 325mg once daily to help with this as well. Stay off of your natural medicine that you take sometimes for blood pressure and check a seated, relaxed blood pressure a couple of times daily and jot this down to review at your visit with Dr. Dunn. Call [facility] (Dr. Dunn's office) first thing tomorrow morning. The let them know that we spoke with her when you were in the emergency room and that she wants to see you in the clinic on Sunday for follow -up. Prescriptions: New atorvastatin [Lipitor] 40 mg tablet 40 mg PO DAILY Qty: 30 RF: 0 No Action liothyronine [Cytomel] 5 mcg tablet 5 mcg PO DAILY Qty: 180 RF: 3 Ketoconazole 2? cream TOP BID RF: 0 Nature Throid See Patient Comments PO .QDAY RF: 0 C-Biest/Progesterone capsule See Patient Comments PO .QDAY RF: 0 C-Testosterone/ML Lipoderm cream See Patient Comments TOP .QDAY RF: 0 Referrals: Sanna Dunn MD [Physician] - <Sandra Yanes DO - Last Filed: 04/19/18 18:28> [facility] Attestation: I was immediately available in the department for consultation. Documentation has been reviewed. I agree with assessment and plan.
[2018-04-14 15:31] LABS: Add Manual Diff / Slide Review NO; Basophils Percent Auto 0.6 % (0-2); Eosinophils Percent Auto 1.3 % (2-4); Hematocrit 42.7 % (36-46); Hemoglobin 14.4 g/dL (12.0-16.0); Lymphocytes Percent Auto 36.9 % (25-40); Mean Corpuscular HGB Conc 33.7 % (30-36); Mean Corpuscular Hemoglobin 30.6 PG (26-34); Mean Corpuscular Volume 90.9 fL (80-100); Monocytes Percent Auto 5.5 % (3-14); Neutrophils Absolute Auto 3300 /uL (3000-5900); Neutrophils Percent Auto 55.7 % (50-75); Platelet Count 317 X10^3/uL (150-400); Red Blood Cell Count 4.69 X10^6/uL (4.0-5.2); Red Cell Distribution Width 13.8 % (11.6-14.8); White Blood Cell Count 5.9 X10^3/uL (4.5-11.0)
[2018-04-14 15:41] LABS: Alanine Aminotransferase 37 IU/L (9-52); Albumin 4.1 g/dL (3.5-5.0); Albumin Globulin Ratio 1.5 (1.0-2.8); Alkaline Phosphatase 40 U/L (38-126); Aspartate Aminotransferase 24 IU/L (14-36); BUN Creatinine Ratio 24.3 (6-22); Bilirubin Total 0.3 mg/dL (0.2-1.3); Blood Urea Nitrogen 17 mg/dL (7-17); Calcium 8.8 mg/dL (8.4-10.2); Carbon Dioxide 27 mmol/L (22-32); Chloride 105 mmol/L (98-107); Estimated Glomerular Filt Rate > 60.0 mL/min (>60); Globulin 2.8 g/dL (1.7-4.1); Glucose 103 mg/dL (80-110); HEMOLYSIS < 15 (0-50); Potassium 4.4 mmol/L (3.4-5.1); Sodium 143 mmol/L (137-145); Total Protein 6.9 g/dL (6.3-8.2)
[2018-04-14 16:11] LABS: Thyroid Stimulating Hormone 0.47 uIU/mL (0.47-4.68)
[2018-04-14 16:27] LABS: Cholesterol 191 mg/dL (140-199); HDL Cholesterol 34 mg/dL (40-60); LDL Cholesterol Calculated 100 mg/dL (<100); Triglycerides 284 mg/dL (35-150)
[2018-04-14] MEDS: ASPIRIN 325 MG TABLET PO (16:34)
[2018-04-14 16:41] VITALS: BP 155/71; PULSE 66; RESP 16; O2SAT 98
== END 2018-04-14 16:20 | disposition home or self-care (01) ==
PROVIDERS: Emergency Provider Internal Medicine; Family Provider Naturopath
DX: I63.9 Cerebral infarction, unspecified (principal)
CPT/HCPCS: 36415; 70450; 73502; 80053; 80061; 84443; 85025; 93005; 99282; 99285

== ENCOUNTER → 2018-04-22 17:11 | Outpatient (CLI) | payer MEDICARE, BC, SELFPAY ==
--- NOTE | 2018-04-22 17:13 | DI.MRI.S_ITS ---
PROCEDURE: MR STROKE Pre- and post-contrast brain MRI, non-contrast brain MR angiogram, pre- and postcontrast neck MR angiogram INDICATIONS: CERBERAL INFRACTION. ABNORMAL CT TECHNIQUE: Brain: Noncontrast axial T1 spin echo, axial T2 fast spin echo, sagittal and axial FLAIR, coronal T2 fast spin echo, axial gradient echo, axial diffusion and ADC through the brain. After the administration of contrast, axial 3D VIBE of the cranial vasculature and brain. Brain MRA: Non-contrast 3-D time of flight MR angiogram, with multiple eiydynf-plubgkvfq-txswswhqba (MIP) reformats performed. Neck MRA: Axial and sagittal TruFISP through the neck. Coronal dynamic MR angiogram during administration of contrast in the arterial and venous phases, with 3-dimenstional bbdvqzv-ydpqhugxa-gijoewtvxx (MIP) reformats constructed from subtraction images. COMPARISON: [facility], CT, CT HEAD/BRAIN WO CON, 04/14/2018, 15:56. FINDINGS: Image quality: Excellent. BRAIN: CSF spaces: Ventricles are normal in size and shape. Basal cisterns are patent. No extra-axial fluid collections. Brain: No mass effect. Asencio-white matter interface is normal. Diffusion weighted images demonstrate a 20 mm diameter region of elevated signal intensity within the right anterior basal ganglia, which demonstrates moderate FLAIR signal elevation. Mild diffuse cerebral volume loss and a mild degree of patchy high FLAIR signal within the periventricular and subcortical white matter. Small amount of high T1 signal intensity within the right basal ganglia infarct. Mild patchy FLAIR signal elevation within the barb. Normal intravascular flow voids are present. There is moderate curvilinear enhancement within the subacute right basal ganglia infarct. Skull and face: Calvarial marrow signal is normal. Orbits appear normal. Sinuses: Sinuses and mastoids are clear. BRAIN MR ANGIOGRAM: Anterior circulation: Intracranial internal carotid arteries are normal in size and enhancement. The flow within the paired anterior cerebral arteries is normal and symmetric. The flow within the middle cerebral arteries is normal and symmetric. The anterior communicating artery is seen. No stenoses, occlusions, or aneurysms. Posterior circulation: There is faint visualization of flow within the right vertebral artery. Left vertebral artery is patent. Basilar artery is patent. The flow within the posterior cerebral arteries is normal and symmetric. No stenoses, occlusions, or aneurysms. NECK MR ANGIOGRAM: Carotids: Great vessels demonstrate a conventional anatomy as they arise from the aortic arch. The origins of the common carotid arteries appear patent. The calibers and courses of both common carotid arteries are normal. The bifurcation regions appear normal bilaterally. The internal carotid arteries demonstrate normal course and caliber. Posterior circulation: The left vertebral artery is patent. The right vertebral artery is small in caliber, and is suboptimally visualized. Miscellaneous: Subclavian arteries appear patent. Pre-contrast images through the neck show no soft tissue abnormalities. IMPRESSION: BRAIN MRI: 1. Subacute hemorrhagic right basal ganglia infarct. 2. Post contrast-enhancement within the infarct is present, likely representing laminar cortical necrosis. Followup brain MRI with and without intravenous contrast in 3 months is recommended to exclude less likely, more aggressive etiologies. 3. Volume loss and small vessel ischemic disease. BRAIN MR ANGIOGRAM: 1. Suboptimally visualized right vertebral artery, possibly due to small caliber. Otherwise negative cerebral MR angiography. NECK MR ANGIOGRAM: 1. No internal carotid artery stenosis bilaterally. 2. Patent left vertebral artery. 3. Suboptimally visualized right vertebral artery. This could be further assessed with CT angiography, if clinically indicated. Findings discussed with Dr. Sanna Dunn on 04.23.18 at 1008 hrs. Dictated by: Anatoliy Greenfield M.D. on 04/23/2018 at 9:59 Approved by: Anatoliy Greenfield M.D. on 04/23/2018 at 10:09
== END ==
PROVIDERS: Family Provider Naturopath; Visit Provider Internal Medicine
DX: I61.9 Nontraumatic intracerebral hemorrhage, unspecified (principal); I63.9 Cerebral infarction, unspecified
CPT/HCPCS: 70553; A9579

== ENCOUNTER → 2018-04-30 09:45 | Outpatient (CLI) | payer MEDICARE, BC, SELFPAY ==
--- NOTE | 2018-04-30 | DI.CT.S_ITS ---
PROCEDURE: CT HEAD/BRAIN WO CON INDICATIONS: Hemorrhagic right basal ganglia infarct. TECHNIQUE: Noncontrast 4.5 mm thick angled axial sections acquired from the foramen magnum to the vertex, with coronal and sagittal reformats. For radiation dose reduction, the following was used: automated exposure control, adjustment of mA and/or kV according to patient size. COMPARISON: [facility], MR, MR STROKE, 04/22/2018, 17:30. [facility], CT, CT HEAD/BRAIN WO CON, 04/14/2018, 15:56. FINDINGS: Image quality: Excellent. CSF spaces: Basal cisterns are patent. No extra-axial fluid collections. Ventricles are normal in size and shape. Brain: No midline shift. No intracranial masses or hemorrhage. Asencio-white matter interface is normal. There is some low attenuation at the right basal ganglia anteriorly near the head of the caudate nucleus on the right has almost completely resolved, and no blood products are seen in this area. Skull and face: Calvarium and visualized facial bones are intact, without suspicious lesions. Sinuses: Visualized sinuses and mastoids are clear. IMPRESSION: Small basal ganglia infarction identified by CT and MR scanning 04/14/18 and 04/22/18 respectively has almost completely resolved. No blood products are associated, no mass effect is seen. No new abnormality is found. Dictated by: Jasbir Lainez M.D. on 04/30/2018 at 10:56 Approved by: Jasbir Lainez M.D. on 04/30/2018 at 11:00
== END ==
PROVIDERS: Family Provider Naturopath; Visit Provider Internal Medicine
DX: I63.9 Cerebral infarction, unspecified (principal)
CPT/HCPCS: 70450

== ENCOUNTER → 2018-06-24 10:57 | Outpatient (CLI) | payer MEDICARE, BC, SELFPAY ==
--- NOTE | 2018-06-24 | DI.MG.S_ITS ---
BILATERAL DIGITAL SCREENING MAMMOGRAM 3D/2D WITH CAD: 06/24/2018 CLINICAL: Routine screening. Comparison is made to exams dated: 01/08/2015 mammogram, 12/31/2012 mammogram, 05/20/2012 mammogram, and 01/16/2011 mammogram - [facility]. There are scattered fibroglandular elements in both breasts. Current study was also evaluated with a Computer Aided Detection (CAD) system. There are benign calcifications in both breasts. No significant masses, calcifications, or other findings are seen in either breast. There has been no significant interval change. IMPRESSION: There is no mammographic evidence of malignancy. A 1 year screening mammogram is recommended. This exam was interpreted at Station ID: [id number]. NOTE: For mammograms, a report in lay terms will be sent to the patient. Approximately 15% of breast malignancies will not be visualized mammographically. In the management of a palpable breast mass, a negative mammogram must not discourage biopsy of a clinically suspicious lesion. Electronically Signed By: Kurtis escobar/sonja:06/24/2018 15:53:13 letter sent: Normal Exam ACR BI-RADS Category 2: Benign Finding(s) 3342F
== END ==
PROVIDERS: Family Provider Naturopath; PCP Internal Medicine; Visit Provider Internal Medicine
DX: Z12.31 Encounter for screening mammogram for malignant neoplasm of breast (principal)
CPT/HCPCS: 77063; 77067

== ENCOUNTER → 2018-12-10 16:06 | Outpatient (CLI) | payer MEDICARE, BC, SELFPAY ==
--- NOTE | 2018-12-10 | DI.ECHO.S_ITS ---
[facility] +---------+ : : [address] : : : : [id number] : : : : Phone: [phone]+ Echocardiogram Report + + :Name: FRANCOISE FERNÁNDEZ Study Date: 12/10/2018 Height: 66 in : :[facility] Exam Location: [facility] Weight: 195 lb : : Gender: Female BSA: 2.0 m2 : :: 1950 Age: 68 yrs BP: 162/80 mmHg: :Reason For Study: CVA : :Ordering Physician: Sanna Dunn Performed By: Michelle Page : + + Interpretation Summary The patient was in normal sinus rhythm during the exam. The left ventricle is normal in size. The ejection fraction is estimated to be 60-65%. There is no obvious LV thrombus. The right ventricle is normal in size and function. No significant valvular pathology seen. A patent foramen ovale is suspected. The ascending aorta is mildly enlarged. Mild atherosclerotic plaque(s) in the aortic arch. Consider bubble contrast study to assess PFO. Procedure: A two-dimensional transthoracic echocardiogram with color flow and Doppler was performed. The study quality was technically adequate. There is no prior echocardiogram noted for this patient. The patient was in normal sinus rhythm during the exam. Left Ventricle: The left ventricle is normal in size. Proximal septal thickening is noted. There is no echo evidence for significant left ventricular outflow tract obstruction. There is no thrombus. The ejection fraction is estimated to be 60-65%. There are no focal wall motion abnormalities. Diastolic parameters suggest a relaxation abnormality of the left ventricle, consistent with probable normal filling pressures. Right Ventricle: The right ventricle is normal in size and function. Atria: The left atrium is mildly dilated. Right atrial size is normal. A patent foramen ovale is suspected. The thickening of interatrial septum suggests lipomatous hypertrophy. Mitral Valve: The mitral valve leaflets are slightly calcified. There is trace mitral regurgitation. Aortic Valve: The aortic valve is trileaflet. The aortic valve opens well. There is no aortic valve stenosis. No aortic regurgitation is present. Tricuspid Valve: The tricuspid valve is not well visualized, but is grossly normal. There is mild tricuspid regurgitation. The right ventricular systolic pressure is estimated to be at least 25 mmHg based on an estimated right atrial pressure of 3 mm Hg. Pulmonic Valve: The pulmonic valve is not well visualized. There is trace pulmonic regurgitation. Great Vessels: The aortic root is normal size. The ascending aorta is mildly enlarged. Mild atherosclerotic plaque(s) in the aortic arch. The pulmonary is not well visualized. The IVC is of normal diameter and collapses greater than 50% with a sniff. This suggests a low right atrial pressure of 3 mm Hg. Pericardium/ Pleura There is no pericardial effusion. There is no pleural effusion. MMode/2D Measurements & Calculations LVIDd: 4.7 cm LVOT diam: 2.1 cm LVIDs: 2.8 cm Ao root diam: 2.9 cm FS: 40.6 % asc Aorta Diam: 3.5 cm EPSS: 0.20 cm IVSd: 0.75 cm LVPWd: 0.62 cm LV michael. diameter/BSA (cm/m^2): 2.4 LV sys. diameter/BSA (cm/m^2): 1.4 LA A2 area: 19.8 cm2 RA long axis: 4.9 cm LA A4 area: 21.1 cm2 RA area: 14.3 cm2 LA length (vol): 5.6 cm RA vol: 35.6 ml LA vol: 63.3 ml RA : 18.0 ml/m2 LA vol index: 32.0 ml/m2 IVC diam: 1.5 cm RVD1 (basal): 4.2 cm RVD2 (mid): 3.6 cm TAPSE: 2.4 cm Doppler Measurements & Calculations Ao V2 max: 167.0 cm/sec LVOT Max Fred: 108.0 cm/sec Ao V2 mean: 118.0 cm/sec LV V1 max P.7 mmHg Ao max P.2 mmHg LV V1 VTI: 22.6 cm Ao mean P.9 mmHg AC(I,D): 2.7 cm2 Ao V2 VTI: 30.1 cm AC(V,D): 2.3 cm2 sev ratio: 0.75 AC indexed to BSA (cm^2/m^2): 1.4 MV E max fred: 82.7 cm/sec TR max fred: 234.2 cm/sec MV A max fred: 92.5 cm/sec TR max P.9 mmHg MV E/A: 0.89 PA V2 max: 76.1 cm/sec Med Peak E' Fred: 6.6 cm/sec PA V2 mean: 59.1 cm/sec E/E' med: 12.5 PA mean P.5 mmHg Lat Peak E' Fred: 9.2 cm/sec PA Accel Time: 0.07 sec E/E' lat: 9.0 E/e' average: 10.8 MV dec time: 0.26 sec MV P1/2t: 81.3 msec MV P1/2t max fred: 84.7 cm/sec SV(LVOT): 81.5 ml MVA(P1/2t): 2.7 cm2 Reading Physician:GERALDINE
== END ==
PROVIDERS: Family Provider Naturopath; PCP Internal Medicine; Visit Provider Internal Medicine
DX: I63.9 Cerebral infarction, unspecified (principal); I07.1 Rheumatic tricuspid insufficiency; I77.89 Other specified disorders of arteries and arterioles; I70.0 Atherosclerosis of aorta
CPT/HCPCS: 93306

== ENCOUNTER → 2019-01-16 14:49 | Outpatient (CLI) | payer MEDICARE, BC, SELFPAY ==
--- NOTE | 2019-01-16 | DI.ECHO.S_ITS ---
[place] [facility]---------+ [facility] +---------+ : : [address] : : : : [id number] : : : : Phone: [phone]+ Echocardiogram Report + + :Name: FRANCOISE FERNÁNDEZ Study Date: 01/16/2019 Height: 66 in : :[facility] Weight: 195 lb: : Gender: Female BSA: 2.0 m2 : :: 1950 Age: 68 yrs : :Reason For Study: PFO : : Performed By: Harmeet Fenton : :Referring: JOSEPH JARRETT : + + Interpretation Summary The ejection fraction is estimated to be 60-65%. Injection of contrast documented no interatrial shunt. There is no significant valvular heart disease. Procedure: A limited 2D echocardiogram was performed to assess for PFO. A saline contrast injection was performed to assess for cardiac shunting. Comparison is made with the echocardiogram of 12/10/18. The patient was in normal sinus rhythm during the exam. Left Ventricle: The left ventricle is normal in size. There is normal left ventricular wall thickness. The ejection fraction is estimated to be 60-65%. Right Ventricle: The right ventricle is normal in size and function. Atria: Injection of contrast documented no interatrial shunt. Mitral Valve: The mitral valve is normal. Aortic Valve: The aortic valve is trileaflet. The aortic valve opens well. MMode/2D Measurements & Calculations LVIDd: 4.1 cm LVIDs: 2.3 cm FS: 44.9 % IVSd: 0.92 cm LVPWd: 0.94 cm LV michael. diameter/BSA (cm/m^2): 2.1 LV sys. diameter/BSA (cm/m^2): 1.1 Doppler Measurements & Calculations TR max annabelle: 216.1 cm/sec TR max P.8 mmHg Reading Physician:04:59 PM
== END ==
PROVIDERS: Family Provider Naturopath; PCP Internal Medicine; Visit Provider Internal Medicine
DX: Q21.1 Atrial septal defect (principal); I63.9 Cerebral infarction, unspecified
CPT/HCPCS: 93307

== ENCOUNTER → 2019-01-29 10:16 | Outpatient (CLI) | payer MEDICARE, BC, SELFPAY | PROVIDERS: Family Provider Naturopath; PCP Internal Medicine; Visit Provider Internal Medicine | DX: M85.88 Other specified disorders of bone density and structure, other site (principal) | CPT/HCPCS: 77080 ==

== ENCOUNTER → 2020-02-02 12:10 | Outpatient (CLI) | payer MEDICARE, BC, SELFPAY ==
[2020-02-03 20:02] LABS: COVID19 Sendout Not Detected (Not Detect)
== END ==
PROVIDERS: Family Provider Naturopath; PCP Internal Medicine; Visit Provider Physician Assistant
DX: Z11.59 Encounter for screening for other viral diseases (principal)
CPT/HCPCS: 87635

== ENCOUNTER 2020-02-04 11:31 | Day surgery (SDC) | payer MEDICARE, BC, SELFPAY ==
--- NOTE | 2020-02-04 | PATH_ITS ---
[facility] Accession Number: [id number] . 01 Material submitted: . colon - TRANSVERSE COLON POLYP AT 70CM . 01 Clinical history: . SCREENING COLONOSCOPY W/POSS BX . 02 Diagnosis: Transverse Colon, Polyp at 70 cm, Biopsy: Hyperplastic colonic mucosa with a benign lymphoid aggregate. Additional deeper levels were examined. Negative for dysplasia and malignancy. MRV 02/06/2020 1335 Local . 02 Electronically signed: . Barbara Saavedra MD, Pathologist NPI- [id number] . 01 Gross description: . TRANSVERSE COLON POLYP AT 70CM: Received in formalin is 1 fragment(s) of martinez, soft tissue measuring 0.4 x 0.4 x 0.3 cm submitted entirely in 1 cassette(s) /VANE 02/05/2020 0127 Local . 02 Pathologist provided ICD-10: K63.5 . 02 CPT . 790848 Performed at: 01 [facility] [address] [facility], [place], [place] [id number] MD Florian Perales MD Phone: [phone] Performed at: 02 [facility] [address] [place], [place] [id number] MD Barbara Saavedra MD Phone: [phone]
[2020-02-04 12:11] VITALS: BP 164/81; PULSE 96; RESP 18; TEMP 36.6; O2SAT 97; BMI 32.1
[2020-02-04] MEDS: SODIUM CHLORIDE 0.9% 1,000 ML 100 ML IV (12:22)
[2020-02-04] MEDS: fentaNYL 250 MCG/5 ML INJ IV (13:28)
[2020-02-04] MEDS: MIDAZOLAM 5 MG/5 ML VIAL IV (13:28)
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
--- NOTE | 2020-02-04 13:30 | PM.OP.ENDO ---
Operative Date/Time/Diagnoses Date of procedure: 02/04/20 Pre-op diagnosis: See indication and findings Procedure & Clinicians Study performed: Colonoscopy Indications: Family history of colon polyps Surgeon: Philipp Martines Procedure Notes Procedure in detail: After informed consent was obtained the patient was placed in left lateral decubitus position. The video colonoscope was introduced the rectum slowly advanced cecum. Slow withdrawal mucosa was carefully examined. Preparation was good. The scope was removed. The patient tolerated procedure. Blood loss none Complications none Sedation Total sedation time 30 minutes Versed 8 mg fentanyl 300 right g IV titration Findings 1. Extremely tortuous and long colon. It took a very long time to get to the cecum. 2. Fair prep but close to good by the time all apple were washed 3. Extensive left-sided diverticulosis 4. 6 mm polyp at 70 cm/transverse resected and retrieved with cold snare. Ms. Hadley should have propofol sedation next time she has this done. She was difficult to sedate and a colonoscopy was quite difficult. Given her family history in addition to the polyp suggest follow-up colonoscopy in 5 years
[2020-02-04 14:07] VITALS: BP 119/50; PULSE 80; RESP 10; TEMP 36.7; O2SAT 94
[2020-02-04 14:12] VITALS: BP 112/49; PULSE 80; RESP 12; TEMP 36.7; O2SAT 94
[2020-02-04 14:17] VITALS: BP 110/50; PULSE 95; RESP 22; TEMP 37.6; O2SAT 96
[2020-02-04 14:25] VITALS: BP 118/58; PULSE 93; RESP 19; TEMP 36.2; O2SAT 96
--- NOTE | 2020-02-04 14:35 | SUR.PHASEII ---
Pt awake but wanting to wait a little bit to get dressed. Resting comfortably
[2020-02-04 14:46] VITALS: BP 122/69; PULSE 89; RESP 16; TEMP 37.5; O2SAT 95
--- NOTE | 2020-02-04 15:12 | SUR.PHASEII ---
Pt up and ambulating gait steady, getting dressed now and ride bringing car to curbside. All dc instructions given to pt and pt verbalizes understanding. Iv dcd and site clear
== END 2020-02-04 15:27 | disposition home or self-care (01) ==
PROVIDERS: Family Provider Naturopath; PCP Internal Medicine; Referring Provider Internal Medicine; Visit Provider Internal Medicine Gastroenterology
PROC: 0DJD8ZZ Inspection of Lower Intestinal Tract, Via Natural or Artificial Opening Endoscopic (ICD-10-PCS; CPT 45378; principal; 2020-02-04 13:30)
DX: Z12.11 Encounter for screening for malignant neoplasm of colon (principal); E78.5 Hyperlipidemia, unspecified; E03.9 Hypothyroidism, unspecified; Z86.010 Personal history of colon polyps; K57.30 Diverticulosis of large intestine without perforation or abscess without bleeding; D12.3 Benign neoplasm of transverse colon
CPT/HCPCS: 45385; J2250; J3010

== ENCOUNTER 2020-05-24 00:08 | Observation (INO) | payer MEDICARE, BC, SELFPAY ==
[2020-05-24] VITALS (9 sets, daily range): BP systolic 118–175; BP diastolic 56–85; PULSE 73–104; RESP 15–28; TEMP 36.3–36.6; O2SAT 94–97; BMI 32.9
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
--- NOTE | 2020-05-24 00:42 | DI.CT.S_ITS ---
PROCEDURE: CT HEAD/BRAIN WO CON INDICATIONS: dizzy now resolved prior cva TECHNIQUE: Noncontrast 4.5 mm thick angled axial sections acquired from the foramen magnum to the vertex, with coronal and sagittal reformats. For radiation dose reduction, the following was used: automated exposure control, adjustment of mA and/or kV according to patient size. COMPARISON: [facility], CT, CT HEAD/BRAIN WO CON, 04/14/2018, 15:56. FINDINGS: Image quality: Excellent. CSF spaces: Basal cisterns are patent. No extra-axial fluid collections. The ventricles are symmetric in size and shape. Brain: No intracranial bleeds or masses. There is cerebral volume loss for age, with resultant ventricular and sulcal prominence. There are periventricular and deep white matter chronic small vessel ischemic changes. Chronic lacunar infarct involving the anterior limb of the right internal capsule/anterior osullivan radiata. There is intracranial internal carotid artery atherosclerosis. Skull and face: Calvarium and visualized facial bones appear intact, without suspicious lesions. Sinuses: Visualized sinuses and mastoids are clear. IMPRESSION: No acute intracranial disease process. Dictated by: Maral Albert MD, PhD on 05/24/2020 at 7:58 Approved by: Maral Albert MD, PhD on 05/24/2020 at 8:01
[2020-05-24 00:50] LABS: Add Manual Diff / Slide Review NO; Basophils Absolute Auto 0 /uL (0-100); Basophils Percent Auto 0.4 % (0-2); Eosinophils Absolute Auto 100 /uL (0-450); Eosinophils Percent Auto 1.6 % (2-4); Lymphocytes Absolute Auto 3300 /uL (1100-4500); Lymphocytes Percent Auto 45.3 % (25-40); Mean Corpuscular HGB Conc 33.4 % (30-36); Mean Corpuscular Hemoglobin 29.7 PG (26-34); Monocytes Absolute Auto 500 /uL (0-900); Monocytes Percent Auto 7.1 % (3-14); Neutrophils Absolute Auto 3300 /uL (1500-7000); Neutrophils Percent Auto 45.6 % (50-75); Platelet Count 301 X10^3/uL (150-400); Red Blood Cell Count 4.72 X10^6/uL (4.0-5.2); Red Cell Distribution Width 14.3 % (11.6-14.8); White Blood Cell Count 7.3 X10^3/uL (4.5-11.0)
[2020-05-24 00:56] LABS: Alanine Aminotransferase 51 IU/L (<35); Albumin 4.2 g/dL (3.5-5.0); Albumin Globulin Ratio 1.3 (1.0-2.8); Alkaline Phosphatase 53 U/L (38-126); Aspartate Aminotransferase 43 IU/L (14-36); BUN Creatinine Ratio 21.4 (6-22); Bilirubin Total 0.3 mg/dL (0.2-1.3); Blood Urea Nitrogen 22 mg/dL (7-17); Calcium 9.1 mg/dL (8.4-10.2); Carbon Dioxide 28 mmol/L (22-32); Chloride 105 mmol/L (98-107); Creatine Kinase 65 U/L (30-135); Estimated Glomerular Filt Rate 52.7 mL/min (>60); Globulin 3.3 g/dL (1.7-4.1); Glucose 105 mg/dL (80-110); HEMOLYSIS 27 (0-50); Potassium 3.9 mmol/L (3.4-5.1); Sodium 137 mmol/L (137-145); Total Protein 7.5 g/dL (6.3-8.2)
[2020-05-24 01:08] LABS: Troponin I < 0.012 ng/mL (0.01-0.034)
--- NOTE | 2020-05-24 02:36 | PC.NURSE ---
Pt ambulated around unit twice with a stand by assist. Pt felt a little off balance, feeling like she was swaying to the right. Denies dizziness.
[2020-05-24 03:09] LABS: COVID19 -Nasal RAPID Negative (Negative)
[2020-05-24 03:14] LABS: Bacteria Urine None Seen
[2020-05-24 03:29] LABS: Bilirubin Urine UA NEGATIVE (NEGATIVE); Color Urine UA YELLOW; Glucose Urine UA NEGATIVE (Negative); Ketones Urine UA NEGATIVE (NEGATIVE); Leukocyte Esterase Urine UA 1+ (NEGATIVE); Nitrite Urine UA NEGATIVE (Negative); Occult Blood Urine UA 1+ (Negative); Protein Urine UA NEGATIVE (Negative); Urobilinogen Urine UA 0.2 E.U./dL (0.2)
--- NOTE | 2020-05-24 03:41 | DI.MRI.S_ITS ---
PROCEDURE: MR STROKE Pre- and post-contrast brain MRI, non-contrast brain MR angiogram, pre- and postcontrast neck MR angiogram INDICATIONS: dizzyness, past hx of TECHNIQUE: Brain: Noncontrast axial T1 spin echo, axial T2 fast spin echo, sagittal and axial FLAIR, coronal T2 fast spin echo, axial gradient echo, axial diffusion and ADC through the brain. After the administration of contrast, axial 3D VIBE of the cranial vasculature and brain. Brain MRA: Non-contrast 3-D time of flight MR angiogram, with multiple pwqjzde-xihfagsbi-wxjdvzlrsy (MIP) reformats performed. Neck MRA: Axial and sagittal TruFISP through the neck. Coronal dynamic MR angiogram during administration of contrast in the arterial and venous phases, with 3-dimenstional udwkkyv-yfnpzqapb-ivlvqofpsz (MIP) reformats constructed from subtraction images. COMPARISON: [facility], CT, CT HEAD/BRAIN WO CON, 05/24/2020, 0:46. [facility], MR, MR STROKE, 04/22/2018, 17:30. FINDINGS: Image quality: Excellent. BRAIN: CSF spaces: Ventricles are normal in size and shape. Basal cisterns are patent. No extra-axial fluid collections. Brain: No intracranial bleeds or mass effects. Scattered small white matter changes, probably represent chronic microvascular ischemic disease, versus statistically less likely demyelination or other infectious, inflammatory, neurodegenerative etiology, technically nonspecific. Asencio-white matter interface is normal. Diffusion weighted images show no acute ischemic insults. Brainstem appears normal. Normal intravascular flow voids are present. No abnormal intracranial enhancement. Skull and face: Calvarial marrow signal is normal. Orbits appear normal. Sinuses: Sinuses and mastoids are clear. BRAIN MR ANGIOGRAM: Anterior circulation: Intracranial internal carotid arteries are normal in size and enhancement. The flow within the paired anterior cerebral arteries is normal and symmetric. Incidentally noted fenestrated appearance of the right A1 segment. The flow within the middle cerebral arteries is normal and symmetric. The anterior communicating artery is seen. No stenoses, occlusions, or aneurysms. Posterior circulation: Dominant appearance of the left vertebral artery. Diffuse atresia or narrowing/occlusion of the right vertebral artery which is not well visualized. The basilar artery appears within normal limits. The flow within the posterior cerebral arteries is normal and symmetric. No stenoses, occlusions, or aneurysms. NECK MR ANGIOGRAM: Carotids: Great vessels demonstrate a conventional anatomy as they arise from the aortic arch. The origins of the common carotid arteries appear patent. The calibers and courses of both common carotid arteries are normal. The bifurcation regions appear normal bilaterally. The internal carotid arteries demonstrate normal course and caliber. Posterior circulation: Left vertebral artery origin appears patent. Dominant left vertebral artery. The right vertebral artery is not well seen. Basilar artery within normal limits Miscellaneous: Subclavian arteries appear patent. Pre-contrast images through the neck show no soft tissue abnormalities. IMPRESSION: BRAIN MRI: No evidence of acute ischemia. Diffuse small white matter changes, probably represent chronic microvascular ischemic disease, versus statistically less likely demyelination or other infectious, inflammatory, neurodegenerative etiology, technically nonspecific. BRAIN MR ANGIOGRAM: No focal occlusion or stenosis. NECK MR ANGIOGRAM: Dominant appearance of the left vertebral artery. The right vertebral artery is not well visualized possibly diffusely atretic versus occluded. Dictated by: Carlos Kraft M.D. on 05/24/2020 at 10:38 Approved by: Carlos Kraft M.D. on 05/24/2020 at 10:50
[2020-05-24 03:44] LABS: Appearance Urine UA SL CLOUDY
[2020-05-24 03:49] LABS: Culture Indicated Urine Specimen Cultured; RBC Urine 1-5/HPF (0-5/HPF); WBC Urine 1-5/HPF (0-5/HPF)
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
[2020-05-24] MEDS: SODIUM CHLORIDE 0.9% 1,000 ML 100 ML IV (05:07)
[2020-05-24 05:21] LABS: INR 0.9 (0.9-1.3); Prothrombin Time 10.4 SECONDS (10.1-12.7)
[2020-05-24 05:30] LABS: Magnesium 2.1 mg/dL (1.6-2.3)
[2020-05-24 05:32] LABS: Hemoglobin A1C% w Est Avg Glu 5.9 % (4.0-6.0)
[2020-05-24 05:49] LABS: TSH w/ Reflex to FT4 0.06 uIU/mL (0.47-4.68)
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
[2020-05-24 06:30] LABS: Free T4, Direct Thyroxine 0.42 ng/dL (0.78-2.19)
[2020-05-24 06:36] LABS: Cholesterol 215 mg/dL (140-199); HDL Cholesterol 34 mg/dL (40-60); LDL Cholesterol Calculated 137 mg/dL (<100); Triglycerides 218 mg/dL (35-150)
--- NOTE | 2020-05-24 08:10 | PC.NURSE ---
Addendum entered by Tri Jarquin R.N. 05/24/20 13:13: discharged to home after MRI/HEAD CT-AND REVIEW OF PO PLAVIX WELL CARE PLAN POST HOSPITALIZATION Original Note: PT IS ALERT/ORIENTED AND NIH SCORE IS ZERO, GCS IS 15- LUNGS CLEAR NO EVIDENCE OF IMPAIRMENT NOTED THIS AM- AMBULATED TO BR AND DENIED ANY DIZZINESS- OR BLURRED VISION. MRI PENDING THIS AM, ASSISTED IN REMOVING JEWELRY AND PLACING IN SPECIMEN CUP AT HER BEDSIDE
--- NOTE | 2020-05-24 09:00 | SLP.IPNOTE ---
Orders received. Attempted to see pt, but pt in MRI. Consulted with RN who reported pt is without s/sx of dysphagia and is communicating clearly and appropriately. Recent NIH was 0. No apparent need for ATHLETE MANAGER evaluation. Orders for Speech Pathology will be discharged.
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
[2020-05-24] MEDS: CLOPIDOGREL 75 MG TABLET PO (12:06)
--- NOTE | 2020-05-24 13:39 | CM.DANOTE ---
DCP: Case received, EMR reviewed and met with patient. Introduced self and role. Was able to obtain information from patient regarding her baseline activity status prior to hospitalization. DCP assessment completed with information currently available. Patient is a 70 year old female who admitted early this morning to the care of the hospitalist team. PCP: Dr. Sanna Dunn. Payer: confirmed: Medicare/[employer] [facility]. Patient came to the hospital via private vehicle secondary to increased pulse rate and dizziness. Patient has had history of CVA which occurred approximately 2 years ago. Patient had MRI which noted no ischemia. Met with patient in her room. She is alert and oriented, pleasant. She was sitting up in bed. She resides in [place] with her spouse, Brendan. She is independent at baseline. 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 Patient stated that she does drive, but does not go out much, and her does most of the driving. Her concern was the dizziness, for she indicated, she had similar symptoms 2 years ago when she had her stroke. P: Patient is to be discharged home today with no needs. Patient is comfortable going home. Rosy Zambrano RN/Tower Switch Operator
== END 2020-05-24 13:21 | disposition home or self-care (01) ==
LOC: ED 02:40 → AC 02:55
PROVIDERS: Admitting Provider Nurse Practitioner Family; Emergency Provider Emergency Medicine; Family Provider Naturopath; PCP Internal Medicine; Referring Provider Emergency Medicine; Visit Provider Nurse Practitioner Family
DX: R42 Dizziness and giddiness (principal); Z86.73 Personal history of transient ischemic attack (TIA), and cerebral infarction without residual deficits; I10 Essential (primary) hypertension; E03.9 Hypothyroidism, unspecified; E78.5 Hyperlipidemia, unspecified; Z01.812 Encounter for preprocedural laboratory examination; Z20.828 Contact with and (suspected) exposure to other viral communicable diseases
CPT/HCPCS: 36415; 70450; 70548; 70553; 80053; 80061; 81001; 81003; 82550; 83036; 83735; 84439; 84443; 84484; 85025; 85610; 87086; 87635; 93005; 93010; 96360; 96361; 97161; 97165; 99284; G0378; A9579

== ENCOUNTER → 2020-05-26 11:15 | Outpatient (CLI) | payer MEDICARE, BC, SELFPAY ==
[2020-05-24 04:10] VITALS: BMI 32.9
--- NOTE | 2020-05-26 | DI.MG.S_ITS ---
BILATERAL DIGITAL SCREENING MAMMOGRAM 3D/2D WITH CAD: 05/26/2020 CLINICAL: Routine screening. Comparison is made to exams dated: 06/24/2018 mammogram, 01/08/2015 mammogram, and 05/20/2012 mammogram - [facility]. There are scattered fibroglandular elements in both breasts. Current study was also evaluated with a Computer Aided Detection (CAD) system. There are benign calcifications in both breasts. No significant masses, calcifications, or other findings are seen in either breast. There has been no significant interval change. IMPRESSION: BENIGN There is no mammographic evidence of malignancy. A 1 year screening mammogram is recommended. This exam was interpreted at Station ID: [id number]. NOTE: For mammograms, a report in lay terms will be sent to the patient. Approximately 15% of breast malignancies will not be visualized mammographically. In the management of a palpable breast mass, a negative mammogram must not discourage biopsy of a clinically suspicious lesion. Electronically Signed By: Florian chinchilla/sonja:05/26/2020 11:53:57 letter sent: Normal Exam ACR BI-RADS Category 2: Benign Finding(s) 3342F
== END ==
PROVIDERS: Family Provider Naturopath; PCP Internal Medicine; Referring Provider Internal Medicine; Visit Provider Internal Medicine
DX: Z12.31 Encounter for screening mammogram for malignant neoplasm of breast (principal)
CPT/HCPCS: 77063; 77067

== ENCOUNTER → 2021-05-31 13:31 | Outpatient (CLI) | payer MEDICARE, BC, SELFPAY ==
[2021-05-11 14:02] VITALS: BMI 32.9
--- NOTE | 2021-05-31 | DI.MG.S_ITS ---
BILATERAL DIGITAL SCREENING MAMMOGRAM 3D/2D WITH CAD: 05/31/2021 CLINICAL: Routine screening. Comparison is made to exams dated: 05/26/2020 mammogram, 06/24/2018 mammogram, 01/08/2015 mammogram, 01/16/2011 mammogram, 12/31/2012 mammogram, and 05/20/2012 mammogram - [facility]. There are scattered fibroglandular elements in both breasts. Current study was also evaluated with a Computer Aided Detection (CAD) system. There is an oval low density asymmetry with an indistinct and circumscribed margin in the left breast middle depth central to the nipple seen on the craniocaudal view only. No other significant masses, calcifications, or other findings are seen in either breast. IMPRESSION: INCOMPLETE: NEEDS ADDITIONAL IMAGING EVALUATION The oval low density asymmetry in the left breast is indeterminate. Mediolateral and spot compression views as well as additional views with possible ultrasound are recommended. This exam was interpreted at Station ID: [id number]. NOTE: For mammograms, a report in lay terms will be sent to the patient. Approximately 15% of breast malignancies will not be visualized mammographically. In the management of a palpable breast mass, a negative mammogram must not discourage biopsy of a clinically suspicious lesion. Electronically Signed By: Florian chinchilla/sonja:05/31/2021 14:04:44 letter sent: Additional Imaging Needed ACR BI-RADS Category 0: Incomplete 3340F
== END ==
PROVIDERS: Family Provider Naturopath; PCP Internal Medicine; Referring Provider Internal Medicine; Visit Provider Internal Medicine
DX: Z12.31 Encounter for screening mammogram for malignant neoplasm of breast (principal)
CPT/HCPCS: 77063; 77067

== ENCOUNTER → 2021-07-20 11:41 | Outpatient (CLI) | payer MEDICARE, BC, SELFPAY ==
[2021-05-11 14:02] VITALS: BMI 32.9
--- NOTE | 2021-07-20 | DI.US.S_ITS ---
LIMITED ULTRASOUND OF LEFT BREAST AND AXILLA: 07/20/2021 CLINICAL: Patient returns today to evaluate an asymmetry in the left breast. Comparison is made to exams dated: 07/20/2021 mammogram, 05/31/2021 mammogram, 05/26/2020 mammogram, and 06/24/2018 mammogram - [facility]. Color flow ultrasound of the left breast 12-1 o'clock, and axilla regions was performed. Asencio scale images of the real-time examination were reviewed. There is a benign 0.4 cm x 0.5 cm x 0.3 cm cluster of oval micro cysts with a septated internal wall in the left breast at 12 o'clock middle depth 9 cm from the nipple. This cluster of oval micro cysts is anechoic with posterior acoustic enhancement. This correlates with mammography findings. No significant abnormalities were seen sonographically in the left axilla. IMPRESSION: BENIGN There is no sonographic evidence of malignancy. The 0.4 cm x 0.5 cm x 0.3 cm cluster of oval micro cysts in the left breast is benign. Return to annual mammogram screening schedule is recommended. This exam was interpreted at Station ID: [id number]. Electronically Signed By: Anastacio chi/sonja:07/20/2021 13:27:54 letter sent: Normal Exam Ultrasound BI-RADS: 2 Benign
--- NOTE | 2021-07-20 | DI.MG.S_ITS ---
UNILATERAL LEFT DIGITAL DIAGNOSTIC MAMMOGRAM 3D/2D WITH ADDITIONAL VIEWS: 07/20/2021 CLINICAL: Additional evaluation requested from prior study. Comparison is made to exams dated: 05/31/2021 mammogram, 05/26/2020 mammogram, and 06/24/2018 mammogram - [facility]. There are scattered fibroglandular elements in left breast. There is an oval low density focal asymmetry with an indistinct and circumscribed margin in the left breast at 12 o'clock middle depth. This is seen in additional views. No other significant masses or calcifications are seen in the breast. IMPRESSION: INCOMPLETE: NEEDS ADDITIONAL IMAGING EVALUATION The oval low density focal asymmetry in the left breast is indeterminate. An ultrasound is recommended. This exam was interpreted at Station ID: [id number]. NOTE: For mammograms, a report in lay terms will be sent to the patient. Approximately 15% of breast malignancies will not be visualized mammographically. In the management of a palpable breast mass, a negative mammogram must not discourage biopsy of a clinically suspicious lesion. Electronically Signed By: Anastacio chi/sonja:07/20/2021 13:25:56 ACR BI-RADS Category 0: Incomplete 3340F
== END ==
PROVIDERS: Family Provider Naturopath; PCP Internal Medicine; Referring Provider Internal Medicine; Visit Provider Internal Medicine
DX: R92.8 Other abnormal and inconclusive findings on diagnostic imaging of breast (principal); N60.02 Solitary cyst of left breast
CPT/HCPCS: 76642; 77065; G0279

== ENCOUNTER → 2022-06-16 15:50 | Outpatient (CLI) | payer MEDICARE, BC, SELFPAY ==
[2021-05-11 14:02] VITALS: BMI 32.9
--- NOTE | 2022-06-16 | DI.MG.S_ITS ---
BILATERAL DIGITAL SCREENING MAMMOGRAM 3D/2D WITH CAD: 06/16/2022 CLINICAL: Routine screening. Comparison is made to exams dated: 05/31/2021 mammogram, 05/26/2020 mammogram, 06/24/2018 mammogram, and 01/08/2015 mammogram - [facility]. There are scattered areas of fibroglandular density in both breasts (category b / 25%-50% glandular tissue). Current study was also evaluated with a Computer Aided Detection (CAD) system. No significant masses, calcifications, or other findings are seen in either breast. There has been no significant interval change. IMPRESSION: NEGATIVE There is no mammographic evidence of malignancy. A 1 year screening mammogram is recommended. Based on the Tyrer Cuzick model (a risk assessment model) the patient's lifetime risk is 3.3% and her 10 year risk is 3.0%. According to the ACR, ACS, and NCCN guidelines, an annual breast MRI exam along with mammogram is recommended if the patient's lifetime risk is 20% or greater. This exam was interpreted at Station ID: [id number]. NOTE: For mammograms, a report in lay terms will be sent to the patient. Approximately 15% of breast malignancies will not be visualized mammographically. In the management of a palpable breast mass, a negative mammogram must not discourage biopsy of a clinically suspicious lesion. Electronically Signed By: Kurtis escobar/sonja:06/16/2022 20:35:28 letter sent: Normal Exam ACR BI-RADS Category 1: Negative [id number]
--- NOTE | 2022-06-16 | DI.MRI.S_ITS ---
PROCEDURE: MR SHOULDER RT WO CON INDICATIONS: RIGHT SHOULDER PAIN TECHNIQUE: Noncontrast oblique coronal T2 fast spin echo with fat saturation, oblique sagittal T1 spin echo and T2 fast spin echo with fat saturation, axial T1 spin echo and T2 fast spin echo with fat saturation through the shoulder. COMPARISON: None. FINDINGS: Image quality: Motion degraded Rotator cuff: Bulk: Mild teres minor atrophy. Teres minor: Intact Supraspinatus: Tendinosis. Partial-thickness tears on both the articular and bursal sides. Infraspinatus: Tendinosis. Bursal sided partial thickness tear. Subscapularis: Tendinosis and interstitial partial thickness tear. Bones and bursae: GH joint: Llck-ns-ggcasyio cartilage loss without subchondral cystic changes or edema. AC joint: Moderate degenerative changes. Humeral head: Insertional ganglions at the greater tuberosity. Scapula and acromion: Normal morphology Bursa: Mild bursitis Capsule: Labrum: Limited evaluation on this non arthrographic study. The labrum is somewhat attenuated diffusely suspected SLAP tear, extending also to the superior posterior aspect. There is also a sublabral recess. Long head biceps tendon: Intra-articular tendinosis. IGHL: Intact Rotator interval: Preserved fat signal Soft tissues: No axillary adenopathy. Lungs are not well seen. IMPRESSION: Rjdy-qf-ehictlhq glenohumeral and moderate acromioclavicular degenerative changes. Chronically attenuated labrum, with a possible SLAP tear extending to the superior posterior labrum on these limited non arthrographic images. Long head biceps tendinosis. Multifocal partial-thickness tears and tendinosis of the supraspinatus, infraspinatus, and subscapularis. Mild nonspecific atrophy of the teres minor. Dictated by: Dallin Catalan M.D. on 06/16/2022 at 17:08 Approved by: Dallin Catalan M.D. on 06/16/2022 at 17:14
== END ==
PROVIDERS: Family Provider Naturopath; PCP Nurse Practitioner Family; Referring Provider Nurse Practitioner Family; Visit Provider Nurse Practitioner Family
DX: Z12.31 Encounter for screening mammogram for malignant neoplasm of breast (principal); M75.111 Incomplete rotator cuff tear or rupture of right shoulder, not specified as traumatic; M25.511 Pain in right shoulder
CPT/HCPCS: 73221; 77063; 77067

== ENCOUNTER → 2023-07-06 15:25 | Outpatient (CLI) | payer MEDICARE, BC, SELFPAY ==
[2021-05-11 14:02] VITALS: BMI 32.9
--- NOTE | 2023-07-06 15:28 | DI.MG.S_ITS ---
BILATERAL DIGITAL SCREENING MAMMOGRAM 3D/2D WITH CAD: 07/06/2023 CLINICAL: Routine screening. Comparison is made to exams dated: 06/16/2022 mammogram, 07/20/2021 mammogram, 05/31/2021 mammogram, and 05/26/2020 mammogram - [facility]. There are scattered areas of fibroglandular density in both breasts (category b / 25%-50% glandular tissue). Current study was also evaluated with a Computer Aided Detection (CAD) system. No significant masses, calcifications, or other findings are seen in either breast. There has been no significant interval change. IMPRESSION: NEGATIVE There is no mammographic evidence of malignancy. A 1 year screening mammogram is recommended. Based on the Tyrer Cuzick model (a risk assessment model) the patient's lifetime risk is 3.1% and her 10 year risk is 3.1%. According to the ACR, ACS, and NCCN guidelines, an annual breast MRI exam along with mammogram is recommended if the patient's lifetime risk is 20% or greater. This exam was interpreted at Station ID: [id number]. NOTE: For mammograms, a report in lay terms will be sent to the patient. Approximately 15% of breast malignancies will not be visualized mammographically. In the management of a palpable breast mass, a negative mammogram must not discourage biopsy of a clinically suspicious lesion. Electronically Signed By: Kurtis escobar/sonja:07/07/2023 08:44:26 letter sent: Normal Exam ACR BI-RADS Category 1: Negative [id number]
== END ==
PROVIDERS: Family Provider Naturopath; PCP Nurse Practitioner Family; Referring Provider Nurse Practitioner Family; Visit Provider Nurse Practitioner Family
DX: Z12.31 Encounter for screening mammogram for malignant neoplasm of breast (principal); R92.323 Mammographic fibroglandular density, bilateral breasts
CPT/HCPCS: 77063; 77067

== ENCOUNTER → 2024-06-11 14:41 | Outpatient (CLI) | payer MEDICARE, BC, SELFPAY ==
[2021-05-11 14:02] VITALS: BMI 32.9
--- NOTE | 2024-06-11 14:43 | DI.RAD.S_ITS ---
PROCEDURE: XR LUMBAR SPINE MIN 4V INDICATIONS: Low back pain TECHNIQUE: 5 views of the lumbar spine were acquired, including bilateral oblique views. COMPARISON: None. FINDINGS: Bones: 5 nonrib-bearing vertebrae are present. There is normal bony alignment. Superior endplate disc height loss at L2. No suspicious bony lesions. Left sacroiliac arthrodesis without hardware complication. Mild disc height loss at all levels and facet arthrosis of L4 through S1. Soft tissues: Overlying bowel gas pattern is normal. No suspicious soft tissue calcifications. Oblique images: No pars defects. IMPRESSION: Superior endplate disc height loss at L2, which probably represents an age indeterminate compression deformity. No endplate retropulsion. Mild, multilevel degenerative disc disease and lower lumbar facet arthrosis. Dictated by: Carroll Quiles M.D. on 06/12/2024 at 14:09 Approved by: Carroll Quiles M.D. on 06/12/2024 at 14:12
--- NOTE | 2024-06-11 14:43 | DI.RAD.S_ITS ---
PROCEDURE: XR KNEE RT 3V INDICATIONS: Right knee pain-fall TECHNIQUE: 3 views of the knee were acquired. COMPARISON: None. FINDINGS: Bones: No fractures or dislocations. No suspicious bony lesions. Soft tissues: Small joint effusion. No suspicious soft tissue calcifications. IMPRESSION: No acute bony abnormality or significant effusion. Dictated by: Carroll Quiles M.D. on 06/12/2024 at 14:12 Approved by: Carroll Quiles M.D. on 06/12/2024 at 14:13
== END ==
PROVIDERS: Family Provider Naturopath; PCP Nurse Practitioner Family; Referring Provider Nurse Practitioner Family; Visit Provider Nurse Practitioner Family
DX: M47.816 Spondylosis without myelopathy or radiculopathy, lumbar region (principal); M47.817 Spondylosis without myelopathy or radiculopathy, lumbosacral region; M51.360 Other intervertebral disc degeneration, lumbar region with discogenic back pain only; M51.370 Other intervertebral disc degeneration, lumbosacral region with discogenic back pain only; M25.561 Pain in right knee; Z98.1 Arthrodesis status
CPT/HCPCS: 72110; 73562

== ENCOUNTER → 2024-06-25 19:02 | Outpatient (CLI) | payer MEDICARE, BC, SELFPAY ==
[2021-05-11 14:02] VITALS: BMI 32.9
--- NOTE | 2024-06-25 | DI.RAD.S_ITS ---
PROCEDURE: XR HIP W PEL IF DONE LT 2V INDICATIONS: s/p fall and continued pain to left hip TECHNIQUE: AP pelvis with lateral view(s) of the left hip(s). COMPARISON: [facility], , XR HIP W PEL IF DONE LT 2V, 04/14/2018, 14:33. FINDINGS: Bones: Stable left hemipelvis fixation hardware and left SI joint arthrodesis screw. No acute fractures or dislocations. Pelvic ring appears intact. No suspicious bony lesions. Chronic left obturator ring fracture healed with deformity. Mild left hip osteoarthritis with osseous hypertrophy. Soft tissues: The visualized bowel gas pattern is normal. No suspicious soft tissue calcifications. IMPRESSION: No fracture. No acute osseous lesion. If symptoms and/or clinical suspicion for pathology persists, further assessment with repeat radiographs (7-10 days) or advanced imaging (e.g. CT, MRI or bone scan) should be considered. Mild left hip osteoarthritis. Dictated by: Maral Albert MD, PhD on 06/26/2024 at 8:11 Approved by: Maral Albert MD, PhD on 06/26/2024 at 8:13
== END ==
PROVIDERS: Family Provider Naturopath; PCP Nurse Practitioner Family; Referring Provider Nurse Practitioner Family; Visit Provider Nurse Practitioner Family
DX: M16.12 Unilateral primary osteoarthritis, left hip (principal); M25.552 Pain in left hip; W19.XXXA Unspecified fall, initial encounter; Z98.1 Arthrodesis status
CPT/HCPCS: 73502

== ENCOUNTER → 2024-12-03 10:22 | Outpatient (CLI) | payer MEDICARE, BC, SELFPAY ==
[2021-05-11 14:02] VITALS: BMI 32.9
--- NOTE | 2024-12-03 10:24 | DI.US.S_ITS ---
MM diagnostic mammo BI, US breast LT limited: 12/03/2024 BI-RADS: 2 CLINICAL: 74-year old female for bilateral diagnostic mammogram and left diagnostic breast ultrasound. Tyrer-Cuzick lifetime risk of 2.7%. No personal or first- degree family history of breast cancer. PRIOR EXAMS 07/06/2023, 06/24/2022, 06/24/2021, 06/24/2020, 06/24/2019, 06/24/2018, 01/08/2015. MAMMOGRAPHY TECHNIQUE: 2D and 3D (tomosynthesis) digital mammographic views obtained, with additional images as needed for full coverage. Current study was also evaluated with a Computer Aided Detection (CAD) system. ULTRASOUND TECHNIQUE Real-time galdamez scale and color doppler imaging of the area of clinical interest was performed with image documentation. Left targeted breast ultrasound of the area of clinical interest and the axilla was performed with image documentation. DENSITY B. There are scattered areas of fibroglandular density. MAMMOGRAPHY FINDINGS Right: No new suspicious mammographic abnormalities seen in the upper outer quadrant of the right breast. Stable focus of dense fibroglandular tissue in the right breast upper outer quadrant middle depth. Left: Upper at 12:00, Middle depth, measuring 1cm: There are benign rim calcifications. ULTRASOUND FINDINGS Left: Upper at 12:00, 6.0 cm from nipple, measuring 0.85 x 0.94 x 0.96 cm: There is an oil cyst. Finding(s) correlate with mammographic evaluation of an oil cyst. IMPRESSION: Left * No evidence of malignancy with benign findings. RECOMMENDATIONS Bilateral * Annual screening mammography. COMMENTS: Findings and recommendations were conveyed to the patient during today's evaluation. OVERALL ASSESSMENT CATEGORY BI-RADS-2: Benign. The [employer] recommends annual screening mammography beginning at age 40 for women with average risk of breast cancer. ELECTRONICALLY SIGNED: Kurtis Rodriguez M.D. on 12/03/2024 at 01:04:40 PM PT Interpreting Station ID: [id number]
--- NOTE | 2024-12-03 10:24 | DI.US.S_ITS ---
US breast RT limited: 12/03/2024. BI-RADS: 1 CLINICAL: 74-year old female for right diagnostic breast ultrasound. Tyrer- Cuzick lifetime risk of 2.7%. No personal or first-degree family history of breast cancer. PRIOR EXAMS: 07/06/2023, 06/16/2022, 07/20/2021, 05/31/2021, 05/26/2020, 06/24/2018, 01/08/2015. ULTRASOUND TECHNIQUE Real-time galdamez scale imaging of the area of clinical interest was performed with image documentation. TARGETED Right Breast Ultrasound: Real-time ultrasound exam was performed focused to area of clinical and/or imaging concern. ULTRASOUND FINDINGS Right: No suspicious sonographic finding present. IMPRESSION: Right * No evidence of malignancy. RECOMMENDATIONS Bilateral * Annual screening mammography. COMMENTS: Findings and recommendations were conveyed to the patient during today's evaluation. OVERALL ASSESSMENT CATEGORY BI-RADS-1: Negative. ELECTRONICALLY SIGNED: Kurtis Rodriguez M.D. on 12/03/2024 at 01:02:49 PM PT Interpreting Station ID: [id number]
== END ==
LOC: MAMMO 10:22
PROVIDERS: Family Provider Naturopath; PCP Nurse Practitioner Family; Referring Provider Nurse Practitioner Family; Visit Provider Nurse Practitioner Family
DX: R92.8 Other abnormal and inconclusive findings on diagnostic imaging of breast (principal); R92.1 Mammographic calcification found on diagnostic imaging of breast; N60.02 Solitary cyst of left breast
CPT/HCPCS: 76642; 77066; G0279

== ENCOUNTER 2025-03-15 08:48 | Observation (INO) | payer MEDICARE, BC, SELFPAY ==
[2021-05-11 14:02] VITALS: BMI 32.9
[2025-03-15] VITALS (22 sets, daily range): BP systolic 138–186; BP diastolic 63–89; PULSE 62–82; RESP 13–32; TEMP 36.3–36.9; O2SAT 93–99; BMI 31.3
--- NOTE | 2025-03-15 09:04 | EKG_ITS ---
[address] [id number] [address] [address] Test Date: 2025-03-15 Pat Name: Cherelle Carrillo Department: Room: 213 Gender: Female [employer]: MERCY : [id number] Requested By: Order Number: [id number] Reading MD: Dirk Phillips Measurements Intervals [place] Rate: 76 P: 46 MT: 156 QRS: 17 QRSD: 84 T: 48 QT: 404 QTc: 454 Interpretive Statements Normal sinus rhythm Low voltage QRS Electronically Signed On 03-18-2025 8:02:36 PDT by Dirk Phillips
--- NOTE | 2025-03-15 09:16 | DI.CT.S_ITS ---
PROCEDURE: CT STROKE INDICATIONS: lightheaded, hx stroke TECHNIQUE: Noncontrast 4.5 mm thick angled axial sections acquired from the foramen magnum to the vertex, with coronal reformats. For radiation dose reduction, the following was used: automated exposure control, adjustment of mA and/or kV according to patient size. COMPARISON: [facility], CT, CT ANGIO HEAD AND NECK, 03/15/2025, 9:27. FINDINGS: Image quality: Diagnostic. CSF spaces: Basal cisterns are patent. No extra-axial fluid collections. Ventricles are normal in size and shape. Mild symmetric expansion without evidence of up obstruction. Brain: No midline shift. No intracranial mass effect or hemorrhage. Asencio- white matter interface is normal. Diffuse parenchymal volume loss with periventricular white matter hypodensities. Skull and face: Calvarium and visualized facial bones are intact, without suspicious lesions. Sinuses: Visualized sinuses and mastoids are clear. IMPRESSION: No acute intracranial hemorrhage. Ordering provider was not available by telephone at the time of dictation. This study fulfills neurological imaging criteria for inclusion or exclusion of acute stroke therapies based on available published neurological imaging guidelines. Dictated by: William Larkin M.D. on 03/15/2025 at 8:40 Approved by: William Larkin M.D. on 03/15/2025 at 8:44
--- NOTE | 2025-03-15 09:16 | DI.CT.S_ITS ---
PROCEDURE: CT ANGIO HEAD AND NECK INDICATIONS: lightheaded, hx stroke TECHNIQUE: After the administration of intravenous contrast, 1 mm thick sections acquired from the aortic arch through the [place]. 3-dimensional khqqzia-ldltbmcee-dwktbwzqla (MIP) and/or volume rendering reformats were acquired of the central intracranial vasculature and neck separately. For radiation dose reduction, the following was used: automated exposure control, adjustment of mA and/or kV according to patient size. COMPARISON: None. FINDINGS: Image quality: Diagnostic. Cerebral CT Angiogram: Internal carotid arteries: No acute findings. Intracranial ICA are patent with no significant stenosis. No occlusion. No aneurysm. Anterior cerebral arteries: Unremarkable. No significant stenosis. No occlusion. No aneurysm. Middle cerebral arteries: Unremarkable. No significant stenosis. No occlusion. No aneurysm. Posterior cerebral arteries: Unremarkable. No significant stenosis. No occlusion. No aneurysm. Basilar artery: Unremarkable. No significant stenosis. No occlusion. No aneurysm. Vertebral arteries: Diminutive right vertebral artery, likely chronic Dural venous sinuses: Unremarkable given phase of enhancement. Other: Arterial phase appearance of the brain parenchyma is unremarkable. Neck CT Angiogram: Internal carotid arteries: Unremarkable. No significant stenosis. No dissection or occlusion. Common carotid arteries: Unremarkable. No significant stenosis. No dissection or occlusion. External carotid arteries: Unremarkable. No occlusion. Vertebral arteries: Chronic occlusion of the right vertebral artery with distal reconstitution of a diminutive artery. Aortic Arch and Mediastinum: Partially visualized aortic arch unremarkable without evidence of aneurysm. Origins of the great vessels unremarkable. Other: Arterial phase soft tissues of the neck and chest are unremarkable. IMPRESSION: No significant intracranial arterial abnormality is seen. Chronic occlusion of the right vertebral artery otherwise normal appearance of the neck vasculature Any quantitative measurements of stenosis were performed using NASCET criteria. Dictated by: William Larkin M.D. on 03/15/2025 at 8:45 Approved by: William Larkin M.D. on 03/15/2025 at 8:48
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
[2025-03-15 09:25] LABS: INR 1.0 (0.9-1.3); Prothrombin Time 11.4 SECONDS (9.4-12.5)
[2025-03-15 09:26] LABS: Add Manual Diff / Slide Review NO; Hematocrit 43.5 % (36-46); Hemoglobin 14.5 g/dL (12.0-16.0); Lymphocytes Absolute Auto 2100 /uL (1100-4500); Mean Corpuscular HGB Conc 33.2 % (30-36); Mean Corpuscular Hemoglobin 29.1 PG (26-34); Mean Corpuscular Volume 87.7 fL (80-100); Platelet Count 280 X10^3/uL (150-400)
[2025-03-15 09:28] LABS: PTT Partial Thromboplastin Tim 27 SECONDS (25.1-36.5)
[2025-03-15 09:30] LABS: Alanine Aminotransferase 24 IU/L (<35); Albumin 4.3 g/dL (3.5-5.0); Albumin Globulin Ratio 1.4 (1.0-2.8); Alkaline Phosphatase 57 U/L (38-126); Blood Urea Nitrogen 19 mg/dL (7-17); Calcium 9.4 mg/dL (8.4-10.2); Carbon Dioxide 25 mmol/L (22-32); Chloride 106 mmol/L (98-107); Estimated Glomerular Filt Rate > 60 mL/min (>60); Globulin 3.1 g/dL (1.7-4.1); Glucose 98 mg/dL (70-99); HEMOLYSIS < 15 (0-50); Potassium 4.2 mmol/L (3.4-5.1); Sodium 140 mmol/L (137-145); Total Protein 7.4 g/dL (6.3-8.2)
[2025-03-15 09:45] LABS: COVID19 -Nasal RAPID Negative (Negative)
--- NOTE | 2025-03-15 10:06 | DI.MRI.S_ITS ---
PROCEDURE: MR HEAD/BRAIN WO CON INDICATIONS: LH TECHNIQUE: Noncontrast axial T1 spin echo, axial T2 fast spin echo, sagittal and axial FLAIR, coronal T2 fast spin echo, axial gradient echo, axial diffusion and ADC through the brain. COMPARISON: [facility], MR, MR STROKE, 04/22/2018, 17:30. [facility], CT, CT STROKE, 03/15/2025, 9:27. FINDINGS: Image quality: Excellent. CSF Spaces: Basal cisterns are patent. No extra-axial fluid collections. Ventricles are normal in size and shape. Brain: No intracranial masses or hemorrhage. Asencio/white matter interface is normal. Brainstem appears normal. Diffusion-weighted images demonstrate no acute infarct. Extensive T2/FLAIR hyperintensities within the subcortical and periventricular white matter and in near confluent area most prominent within the frontal lobe. There is some increased T2/FLAIR signal within the barb without significant mass effect upon the underlying basal cisterns. Lacunar infarct of the right caudate groove. Skull and face: Calvarium has normal marrow signal. Orbits appear normal. Sinuses: Sinuses and mastoids are clear. IMPRESSION: 1. No active ischemia. 2. Extensive T2/FLAIR hyperintensities suggestive of chronic microvascular ischemic disease. 3. FLAIR hyperintensities within the barb may reflect sequela of prior osmotic demyelination with white matter disease, remote stroke, or less likely mass not excluded. There is similar appearance of the barb on MRI 2018 suggesting chronic etiology. Dictated by: William Larkin M.D. on 03/15/2025 at 10:41 Approved by: William Larkin M.D. on 03/15/2025 at 10:56
[2025-03-15] MEDS: MECLIZINE HCL 12.5 MG TABLET 25 MG PO ×3 (11:37→20:48)
[2025-03-15] MEDS: SODIUM CHLORIDE 0.9% 1,000 ML 1000 ML IV (11:38)
--- NOTE | 2025-03-15 12:42 | PC.NURSE ---
Patient ambulated to Bathroom with SBA of RN. SHe had BP checked prior. No prthostatic changes. Patient states she feels much better than earlier but still not 100%. Patient states I just feel like I need to be careful
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
[2025-03-15] MEDS: methylPREDNISolone succ 40 MG/ML VIAL 20 MG IV (14:54)
[2025-03-15] MEDS: ASPIRIN EC 81 MG TABLET PO (14:54)
[2025-03-15] MEDS: SODIUM CHLORIDE 0.9% 1,000 ML 50 ML IV (15:04)
[2025-03-15] MEDS: PSEUDOEPHEDRINE 30 MG TABLET PO (18:27)
[2025-03-16 00:12] VITALS: BP 146/62; PULSE 73; RESP 16; TEMP 36.2; O2SAT 95
[2025-03-16] MEDS: PSEUDOEPHEDRINE 30 MG TABLET PO ×2 (00:15→06:17)
[2025-03-16 04:47] VITALS: BP 155/66; PULSE 80; RESP 16; TEMP 36.1; O2SAT 96
[2025-03-16 08:00] VITALS: BP 140/60; PULSE 75; RESP 16; TEMP 36.4; O2SAT 97
[2025-03-16] MEDS: ASPIRIN EC 81 MG TABLET PO (08:25)
[2025-03-16] MEDS: MECLIZINE HCL 12.5 MG TABLET 25 MG PO (08:25)
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
--- NOTE | 2025-03-16 10:50 | PC.NURSE ---
Discharge Note Patient A&O, VSS, RA, no complaints of pain/discomfort. Discharge packet reviewed with patient, all questions/concerns addressed. PIV/TELE discontinued. Medications retrieved from pharmacy. Patient able to dress self and pack all belongings. Patient taken down via wheelchair to POV.
--- NOTE | 2025-03-16 11:54 | CM.DANOTE ---
Patient is a 74 yo female who was admitted OBS Status on 03/15/25 for TIA vs Vertigo r/o. Pt has MCR and BX FED for insurance and her PCP is Rosa Isela Watkins. EMR was reviewed. Per MD, pt with hx of prior CVA and TBI and her MRI was negative and symptoms have resolved and medically stable to discharge home today with outpt f/u and no identified barrires to discharge. Per RN, pt has been SBA in room and no identified needs for PT/OT and pt given her discharge instructions and ready for discharge and no concerns noted. Pt last admitted in 2019 and no needs at that time. Pt lives in [place] with her spouse and has supportive family and spouse able to provide transport home today. No discharge planning needs at this time. HAYDEE Vega Discharge Planning/Care Management CM Discharge Assessment Start: 03/15/25 13:03 Freq: Status: Discharge Protocol: Document 03/16/25 11:46 BF (Rec: 03/16/25 11:53 BF [id number]) Discharge Planning Assessment Assigned Discharge HAYDEE Louie Public Safety Director Provider Rosa Isela Watkins Insurance Medicare DPOA/Assigned spouse Brendan Designee Name Contact Information [phone] Advance Directives? No Advance Directives No on File History Provided By Patient,Significant Other,Medical Record Has Patient been No admitted in last 30 days? Prior Living House Arrangements Household Members spouse Type of Drives own vehicle transporation used prior to admit Independent with ADL Yes 's Is patient alert and Yes oriented? Caregiver for No Another Barriers to No Discharge Discharge Plan Home Referrals Initiated None needed Whiteboard Updated Yes in Patient Room with name and ext. # of Jewelry Enameler Review Status In Process Please Provide Date 03/16/25 Initial DC Assessment Was Performed Next Review Type Continued Stay Review
== END 2025-03-16 10:50 | disposition home or self-care (01) ==
LOC: ED 09:02 → AC 13:02
PROVIDERS: Admitting Provider Internal Medicine; Emergency Provider Student in an Organized Health Care Education/Training Program; Family Provider Naturopath; PCP Nurse Practitioner Family; Referring Provider Student in an Organized Health Care Education/Training Program; Visit Provider Internal Medicine
DX: R42 Dizziness and giddiness (principal); R29.700 NIHSS score 0; E03.9 Hypothyroidism, unspecified; Z86.73 Personal history of transient ischemic attack (TIA), and cerebral infarction without residual deficits; Z87.820 Personal history of traumatic brain injury
CPT/HCPCS: 36415; 70450; 70496; 70498; 70551; 80053; 82962; 85025; 85610; 85730; 87635; 93005; 96361; 96374; 99285; G0378; J2919; J7030; Q9967